=== PATIENT | male | born 1950 | race Caucasian/White ===

== ENCOUNTER → 2017-12-23 07:57 | Outpatient (CLI) | payer MEDICARE, SELFPAY ==
[2017-12-23 09:54] LABS: Hemoglobin A1C 5.8 % (0.0-7.0)
[2017-12-23 11:53] LABS: Alanine Aminotransferase 30 U/L (12-78); Albumin Level 3.9 gm/dL (3.4-5.0); Albumin/Globulin Ratio 1.3 (1.1-1.8); Alkaline Phosphatase 74 U/L (46-116); Anion Gap 14.4 mEq/L (5-15); Aspartate Amino Transferase 16 U/L (15-37); Bilirubin,Total 0.6 mg/dL (0.2-1.0); Blood Urea Nitrogen 17 mg/dL (7-18); Calcium 9.3 mg/dL (8.5-10.1); Carbon Dioxide 25 mmol/L (21.0-32.0); Chloride 105 mmol/L (98-107); Chol/HDL Ratio 5.6 (1-3.5); Cholesterol 186 mg/dL (140-200); Creatinine,Serum 1.09 mg/dL (0.70-1.30); Estimated Glomerular Filt Rate 67 ml/min (>60); GFR (African American) 81 ML/MIN (>60); Globulin 2.9 gm/dl (1.3-3.2); Glucose 116 mg/dL (74-106); HDL Cholesterol 33 mg/dL (27-67); LDL Cholesterol 110 mg/dL (0-130); Potassium 4.4 mmoL/L (3.5-5.1); Prostate Specific Ag Screen 0.5 ng/mL (0.0-4.0); Sodium 140 mmol/L (136-145); Total Protein,Serum 6.8 gm/dL (6.4-8.2); Triglycerides 213 mg/dL (30-200); VLDL Cholesterol 43 mg/dL (0-40)
== END ==
PROVIDERS: Visit Provider Family Medicine
DX: Z12.5 Encounter for screening for malignant neoplasm of prostate (principal); I10 Essential (primary) hypertension; R73.9 Hyperglycemia, unspecified
CPT/HCPCS: 36415; 80053; 80061; 83036; G0103

== ENCOUNTER → 2018-11-05 08:09 | Outpatient (CLI) | payer MEDICARE, SELFPAY ==
[2018-11-05 09:09] LABS: Hemoglobin A1C 6.2 % (0.0-7.0)
[2018-11-05 09:29] LABS: Alanine Aminotransferase 30 U/L (12-78); Albumin Level 3.9 gm/dL (3.4-5.0); Albumin/Globulin Ratio 1.3 (1.1-1.8); Alkaline Phosphatase 71 U/L (46-116); Anion Gap 12.9 mEq/L (5-15); Aspartate Amino Transferase 16 U/L (15-37); Bilirubin,Total 0.4 mg/dL (0.2-1.0); Blood Urea Nitrogen 15 mg/dL (7-18); Calcium 9.4 mg/dL (8.5-10.1); Carbon Dioxide 29 mmol/L (21.0-32.0); Chloride 105 mmol/L (98-107); Chol/HDL Ratio 4.9 (1-3.5); Cholesterol 197 mg/dL (140-200); Estimated Glomerular Filt Rate 60 ml/min (>60); GFR (African American) 72 ML/MIN (>60); Glucose 119 mg/dL (74-106); HDL Cholesterol 40 mg/dL (27-67); LDL Cholesterol 118 mg/dL (0-130); Potassium 4.9 mmoL/L (3.5-5.1); Prostate Specific Ag, Diagnost 0.68 ng/mL (0.0-4.0); Sodium 142 mmol/L (136-145); Total Protein,Serum 6.9 gm/dL (6.4-8.2); Triglycerides 194 mg/dL (30-200); VLDL Cholesterol 39 mg/dL (0-40)
== END ==
PROVIDERS: Visit Provider Family Medicine
DX: Z00.00 Encounter for general adult medical examination without abnormal findings (principal); Z79.899 Other long term (current) drug therapy
CPT/HCPCS: 36415; 80053; 80061; 83036; 84153

== ENCOUNTER → 2019-07-13 16:42 | Outpatient (CLI) | payer MEDICARE, SELFPAY ==
--- NOTE | 2019-07-13 | XR_ITS ---
PROCEDURE: XR LUMBAR SPINE MIN 4V CLINICAL INDICATION: LOW BACK PAIN Low back pain on both sides COMPARISON: No exams were available for comparison FINDINGS: There is normal alignment. No acute fracture or dislocation is evident. There is mild degenerative disc disease in the lower thoracic spine and at L1-L2 as well as L4-5 and L5-S1. Facet arthritic changes are present at L4-5 and L5-S1. There is mild sclerosis of the right SI joint. No lytic or blastic change. IMPRESSION: Degenerative changes as described above including degenerative disc disease and facet arthritic change Dictated by: Chandan Mendez MD 07/13/2019 19:34 Electronically signed by Chandan Mendez MD in [place] 07/13/2019 19:34
== END ==
PROVIDERS: PCP Family Medicine; Visit Provider Family Medicine
DX: M54.5 Low back pain (principal)
CPT/HCPCS: 72110

== ENCOUNTER 2019-08-10 09:00 | Outpatient (RCR) | payer MEDICARE, SELFPAY | END 2019-08-10 09:05 | disposition home or self-care (01) | LOC: PT 09:00 | PROVIDERS: PCP Family Medicine; Visit Provider Family Medicine | DX: M54.5 Low back pain (principal) | CPT/HCPCS: 97010; 97014; 97110; 97163; G0283 ==

== ENCOUNTER → 2021-02-15 07:56 | Outpatient (CLI) | payer MEDICARE, SELFPAY ==
[2021-02-15 09:59] LABS: Alanine Aminotransferase 31 U/L (12-78); Albumin Level 3.9 g/dl (3.5-5.0); Albumin/Globulin Ratio 1.6 (1.1-1.8); Alkaline Phosphatase 72 U/L (38-126); Anion Gap 11.9 mEq/L (5-15); Aspartate Amino Transferase 39 U/L (17-59); Bilirubin,Total 0.5 mg/dl (0.2-1.3); Blood Urea Nitrogen 14 mg/dl (9-20); Carbon Dioxide 30 mmol/L (22.0-30.0); Chloride 105 mmol/L (98-107); Chol/HDL Ratio 6.1 (1-3.5); Cholesterol 212 mg/dl (140-200); Estimated Glomerular Filt Rate 66 ml/min (>60); GFR (African American) 80 ML/MIN (>60); Globulin 2.4 g/dL (1.3-3.2); Glucose 122 mg/dl (74-100); HDL Cholesterol 35 mg/dl (40-60); Potassium 4.9 mmoL/L (3.5-5.1); Sodium 142 mmol/L (136-145); Total Protein,Serum 6.3 g/dl (6.3-8.2); Triglycerides 273 mg/dl (30-150); VLDL Cholesterol 55 mg/dL (0-40)
[2021-02-15 10:10] LABS: Direct LDL Cholesterol 111.57 mg/dL (100-129)
[2021-02-15 10:26] LABS: Prostate Specific Ag Screen 0.9 ng/ml (0.0-4.0)
== END ==
PROVIDERS: Visit Provider Family Medicine
DX: I10 Essential (primary) hypertension (principal); Z12.5 Encounter for screening for malignant neoplasm of prostate
CPT/HCPCS: 36415; 80053; 80061; G0103

== ENCOUNTER → 2021-04-26 15:09 | Outpatient (CLI) | payer MEDICARE, SELFPAY ==
--- NOTE | 2021-04-26 15:15 | XR_ITS ---
PROCEDURE: XR CERVICAL SPINE 5V CLINICAL INDICATION: Radiculopathy, cervical region COMPARISON: No exams were available for comparison FINDINGS: There is straightening of the cervical lordosis which may be due to patient position or muscle spasm. There is normal alignment. Degenerative disc disease is present at C4-C5 C5-C6 and C6-C7 worse at C5-C6. Small anterior osteophytes are present at C4-C5 and C6 with small posterior osteophytes at C5-C6. Minimal foraminal narrowing noted on the right at C5-C6 and C6-C7 with moderate foraminal narrowing on the left at C5-C6 and C6-C7. No cervical ribs. IMPRESSION: Cervical spondylosis as detailed above. Dictated by: Chandan Mendez MD 04/26/2021 15:54 Chandan Mendez MD in [facility] 04/26/2021 15:54
--- NOTE | 2021-04-26 15:15 | XR_ITS ---
PROCEDURE: XR SHOULDER RT MIN 2V CLINICAL INDICATION: Pain in right shoulder COMPARISON: No exams were available for comparison FINDINGS: No fracture or dislocation. No lytic or blastic change. There is normal mineralization. There are mild osteoarthritic changes at the acromioclavicular joint and glenohumeral joint with mild subacromial stenosis. Other findings:None. IMPRESSION: Mild osteoarthritic changes with subacromial stenosis Dictated by: Chandan Mendez MD 04/26/2021 15:55 Chandan Mendez MD in [place] 04/26/2021 15:55
== END ==
PROVIDERS: PCP Family Medicine; Visit Provider Family Medicine
DX: M54.12 Radiculopathy, cervical region (principal); M25.511 Pain in right shoulder
CPT/HCPCS: 72050; 73030

== ENCOUNTER 2021-06-14 10:00 | Outpatient (RCR) | payer MEDICARE, SELFPAY ==
--- NOTE | 2021-05-14 15:23 | HMH.PTOPEV ---
PT Outpatient Evaluation Rehab PT Outpatient Evaluation Start: 05/14/21 14:00 Freq: Status: Active Protocol: Document 05/14/21 14:01 SOCOJOANN (Rec: 05/14/21 15:23 JAZZMINEDALTON [id number]) Electronically Signed By Adam Armstrong PT 05/14/21 14:01 Outpatient Therapy Subjective History Subjective History This is the initial evaluation for Jesus Trent. Pt is a 70 y/o male referred for R cervical radiculopathy. Pt reports that he has been experiencing intermittent shooting, numbness and tingling down his R arm that lasts for a couple minutes. Pt reports the tingling occurs in his R thumb, index, and middle finger. Pt reports he feels the numbness more when he sits on a hard surface. Pt reportsed he has never has this before. - note done by Tessa Hobbs, SPT Chief Complaint Paresthesia Symptom Type Numbness,Tingling,Shooting Symptoms Relieved By Shaking Symptoms Aggravated By Sitting,Twisting,Lifting Prior Functional Limitations None Current Functional Limitations Housework,Dressing,Recreation Activity Symptom Description Intermittent Cervical Eval Palpation Cervical Muscles R Cervical Paraspinal,L Cervical Paraspinal,R SCM,R Upper Trapezius,L Upper Trapezius Cervical/Thoracic Palpation Findings Tenderness,Trigger Point Posture Head/C-Spine Posture Sitting Position Flexed,C-Spine Flattened Head/C-Spine Posture Standing Position Flexed,C-Spine Flattened Flexibility Deficits Upper Trapezius Muscle Length (R) Moderate Tightness,(L) Moderate Tightness Scalene Group Muscle Length (R) Moderate Tightness,(L) Moderate Tightness Sternocleidomastoid Muscle Length (R) Moderate Tightness AROM Cervical Spine Extension Active Range of 30 Motion (degrees) Cervical Spine Flexion Active Range of 35 Motion (degrees) Cervical Spine Right Lateral Flexion 50 Active Range of Motion (degrees) Cervical Spine Left Lateral Flexion 35 Active Range of Motion (degrees) Cervical Spine Right Rotation Active mod impaired by Range of Motion (degrees) Cervical Spine Left Rotation Active min impaired by Range of Motion (degrees) MMT Bilateral Deltoid (C5)
== END 2021-06-14 10:05 | disposition home or self-care (01) ==
LOC: PT 10:00
PROVIDERS: PCP Family Medicine; Visit Provider Family Medicine
DX: M54.12 Radiculopathy, cervical region (principal)
CPT/HCPCS: 97014; 97035; 97110; 97140; 97163; G0283

== ENCOUNTER → 2021-07-23 08:58 | Outpatient (CLI) | payer MEDICARE, SELFPAY | PROVIDERS: PCP Family Medicine; Visit Provider Nurse Practitioner | DX: Z20.822 Contact with and (suspected) exposure to COVID-19 (principal) | CPT/HCPCS: C9803; U0003; U0005 ==

== ENCOUNTER → 2022-01-11 08:40 | Outpatient (CLI) | payer MEDICARE, SELFPAY ==
[2022-01-11 09:54] LABS: Alanine Aminotransferase 33 U/L (12-78); Albumin Level 3.9 g/dl (3.5-5.0); Albumin/Globulin Ratio 1.7 (1.1-1.8); Alkaline Phosphatase 68 U/L (38-126); Anion Gap 7.6 mEq/L (5-15); Aspartate Amino Transferase 43 U/L (17-59); Bilirubin,Total 0.5 mg/dl (0.2-1.3); Blood Urea Nitrogen 16 mg/dl (9-20); Calcium 9.3 mg/dl (8.4-10.2); Carbon Dioxide 30 mmol/L (22.0-30.0); Chloride 105 mmol/L (98-107); Cholesterol 199 mg/dl (140-200); Estimated Glomerular Filt Rate 66 ml/min (>60); GFR (African American) 79 ML/MIN (>60); Globulin 2.3 g/dL (1.3-3.2); Glucose 132 mg/dl (74-100); HDL Cholesterol 33 mg/dl (40-60); Potassium 4.6 mmoL/L (3.5-5.1); Sodium 138 mmol/L (136-145); Total Protein,Serum 6.2 g/dl (6.3-8.2); Triglycerides 230 mg/dl (30-150); VLDL Cholesterol 46 mg/dL (0-40)
[2022-01-11 10:05] LABS: Direct LDL Cholesterol 109.92 mg/dL (100-129)
[2022-01-11 10:23] LABS: Prostate Specific Ag Screen 0.8 ng/ml (0.0-4.0)
== END ==
PROVIDERS: PCP Family Medicine; Visit Provider Family Medicine
DX: Z00.00 Encounter for general adult medical examination without abnormal findings (principal); I10 Essential (primary) hypertension; Z12.5 Encounter for screening for malignant neoplasm of prostate
CPT/HCPCS: 36415; 80053; 80061; G0103

== ENCOUNTER → 2022-03-25 08:30 | Outpatient (CLI) | payer MEDICARE, SELFPAY ==
--- NOTE | 2022-03-25 08:36 | CA_ITS ---
APPROVED REPORT EXAM: Comprehensive 2D, Doppler, and color-flow Echocardiogram Bell Spinner: Sara Hough CRT Ht: 6 ft 3 in Wt: 270lbs BSA: 2.49 BP: 128/78 mmHg Indications: SOB, HTN, TDE poor windows, difficult exam 2D Dimensions LVOT 2.09 cm (M/F) 1.5-2.5 LA Volume 31.70 mL LA Volume Index 12.70 mL/m2 (M/F) 16-34 M-Mode Dimensions RVDd 2.67 cm (0.9-2.6) LA Diam 3.54 cm (1.9-4.0) LVDd 4.31 cm (3.5-5.7) Ao Diam 4.17 cm (2.0-3.7) LVDs 3.25 cm (3.5-5.7) IVSd 1.55 cm (0.6-1.1) PWd 1.06 cm (0.6-1.1) EF (Teich) 49.10% FS 24.60% EDV (Teich) 83.50 mL TAPSE 2.06 (<1.7) ESV (Teich) 42.50 mL LV Diastology E Decel Time 190.00 (160-240 msec) E/A Ratio 0.61 MED E' 7.80 (< 7 cm/sec) MED A' 10.50 cm/s E'/MED E' Ratio 5.09 (>14) LAT E' 5.50 (<10 cm/sec) LAT A' 8.00 cm/s E/LAT E' Ratio 7.22 (>14) Aortic Valve AI PHT 403.00 ms AO Peak GR. 5.10 mmHg Mitral Valve MV E Max Steve. 40.00 (40-130 cm/s) MV A Velocity 66.00 (40-130 cm/s) E/A Ratio 0.61 MV Decel. Time 190.00 (160-240 ms) MV PHT 56.00 ms Pulmonary Valve PV Peak Velocity 156.00 (50-150 cm/s) Tricuspid Valve TR P. Velocity 281.00 cm/s RAP Estimate 10.00 mmHg RVSP 41.50 mmHg Left Ventricle Technically difficult study because of the patient factors and poor acoustic windows. Left atrium is mildly enlarged, left ventricle is normal size, mild concentric left ventricular hypertrophy, estimated ejection fraction 55% with no regional wall motion abnormality, grade 1 diastolic dysfunction seen without tissue Doppler evidence of raise left atrial pressure. Right Ventricle Right atrium and right ventricle are normal size and contractility. Aortic Valve Aortic valve is minimally thickened and fibrosed there is no aortic stenosis, there is trace aortic insufficiency. Mitral Valve Mitral valve grossly normal, there is trace mitral regurgitation. Tricuspid Valve Tricuspid valve grossly normal, there is trace tricuspid regurgitation, tricuspid regurgitation jet velocity is inadequate for calculation of the right ventricular systolic pressure. Pulmonic Valve Pulmonic valve is poorly visualized. Great Vessels Aortic root is normal size. Inferior vena cava is poorly visualized. Pericardium No significant pericardial effusion noted. Conclusion 1. Mildly enlarged left atrium, normal left ventricular size, mild concentric left ventricular hypertrophy, estimated ejection fraction 55% with no regional wall motion abnormality, grade 1 diastolic dysfunction seen without tissue Doppler evidence of raise left atrial pressure. 2. Trace aortic, mitral and tricuspid regurgitation. 3. No significant pericardial effusion noted. 4. Inferior vena cava is poorly visualized. Electronically signed by : Ishmael Curtis MD 03/25/2022 18:44:10
== END ==
PROVIDERS: PCP Family Medicine; Visit Provider Family Medicine
DX: R06.09 Other forms of dyspnea (principal); I10 Essential (primary) hypertension
CPT/HCPCS: 93306

== ENCOUNTER 2022-05-02 10:00 | Outpatient (RCR) | payer MEDICARE, SELFPAY | END 2022-05-02 10:05 | disposition home or self-care (01) | LOC: OT 10:00 | PROVIDERS: PCP Family Medicine; Visit Provider Orthopaedic Surgery | DX: M75.121 Complete rotator cuff tear or rupture of right shoulder, not specified as traumatic (principal) | CPT/HCPCS: 97010; 97014; 97035; 97110; 97140; 97165; 97530; G0283 ==

== ENCOUNTER → 2023-04-01 11:56 | Outpatient (CLI) | payer MEDICARE, SELFPAY ==
--- NOTE | 2023-04-01 12:00 | XR_ITS ---
FINAL REPORT CLINICAL HISTORY: RT FOOT PAIN, TWISTED ANKLE February, POSTERIOR ANKLE/HEEL PAIN FINDINGS: Right foot Three views were obtained. There is no acute fracture or dislocation. The joint spaces appear normal. No soft tissue abnormality is identified. There is a moderate plantar spur. Moderate Brandon deformity is identified. There is moderate joint space narrowing of the 1st metatarsophalangeal joint consistent with osteoarthritis. IMPRESSION: Osteoarthritis. Reviewed, Interpreted and Dictated by Trev Lam MD Transcribed by Hafsa Hanna Authenticated and [facility]
--- NOTE | 2023-04-01 12:00 | XR_ITS ---
FINAL REPORT CLINICAL HISTORY: RT ANKLE PAIN,RT FOOT PAIN, TWISTED ANKLE February, POSTERIOR ANKLE/HEEL PAIN FINDINGS: Right ankle Three views were obtained. There is no acute fracture or dislocation. The joint spaces appear normal. No soft tissue abnormality is identified. There is a moderate plantar spur. Moderate Brandon deformity is identified. Mortise is intact. IMPRESSION: No acute process. Reviewed, Interpreted and Dictated by Trev Lam MD Transcribed by Hafsa Hanna Authenticated and [facility]
== END ==
PROVIDERS: PCP Internal Medicine; Visit Provider Internal Medicine
DX: M79.671 Pain in right foot (principal); M25.571 Pain in right ankle and joints of right foot
CPT/HCPCS: 73610; 73630

== ENCOUNTER 2025-01-21 08:03 | Outpatient (CLI) | payer MEDICARE, SELFPAY ==
--- OUTSIDE RECORDS SUMMARY | 2025-01-21 08:06 | XMS_ITS | Data Portability ---
Author Organization [facility] Address [address] [facility] [address] [place] [address] Care Team Providers Care Putty Glazer Name Role Phone MARYCHUY DONATO Referring Provider MARYCHUY DONATO Primary Care Provider [phone] ALFRED YAÑEZ Orthopedic Surgeon [phone] Assessment Encounter Date Assessment Date Assessment LastModified by Organization Details LastModified Time 08/07/2022 08/07/2022 Mr. Trent is a 72 y/o male with a chronic (~1 year to 6 months) of worsening RUE pain that is radiating in an approximate C7 distribution. He has associated paresthesias/num bness in the same distribution, particularly involving the right hand. His MRI cervical spine reveals multi-level spondylosis and foraminal narrowing. Interestingly, his pathology appears more significant on the left side than the right at all levels, but he has no left-sided symptoms. There is some mild to moderate cord compression but he has no clinical signs or symptoms consistent with myelopathy. There is evidence of right-sided C6/7 foraminal narrowing which could be the source of his symptoms. I would like for him to trial a right-sided C6/7 TFESI with pain management to see if this improves his symptoms. If he has a positive response that is transient in nature, he could be a candidate for a right-sided C6/7 foraminotomy. If he does not respond to the injection, he may require a RUE EMG/NCS for additional evaluation. We will see him in follow-up in ~2 months to assess his response to the injection. [email or web address] Not available 08/07/2022 18:58:04 10/25/2022 10/25/2022 Mr. 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 He has had some improvement in his symptoms with Lyrica 50 mg at bedtime. Therefore we will have him slowly increase his Lyrica dosage to 75 mg twice daily. If this is helpful but he continues to have some symptoms he may increase to 3 times daily. We are going to schedule him for a right upper extremity EMG to better isolate the source of his right upper extremity symptoms. He has a trip coming up in a few weeks and we will provide him with a Medrol Dosepak to take for any pain flareups. He would potentially be a candidate for CT 5 6 and C6-7 surgery. He will follow-up after the EMG is complete. Seen by Dr. Encarnacion and myself. Not available 10/25/2022 15:15:41 12/04/2022 12/04/2022 Mr. Trent is a 72 y/o male who previously was experiencing RUE radiating pain in a C7 distribution with a MRI C-spine demonstrating pronounced degenerative changes at C5/6 and C6/7, with L>R foraminal stenosis at both levels and some cord deformation at C5/6. He has EMG confirmation of right C6/7 radiculopathy. He has some RUE triceps weakness, but he is not bothered by this and does not notice it in a functional capacity. He wishes to avoid surgery if at all possible, and his pain has resolved with Lyrica 75 mg BID. At this time we will continue to monitor his symptoms. We will set follow-up for 3 months from now to make sure he does not have a recurrence of symptoms or more occult findings concerning for development of myelopathy. [email or web address] Not available 12/04/2022 21:32:12 03/04/2023 03/04/2023 Mr. Trent is a 72-year-old male with C5-6 and C6-7 degenerative changes with improvement of his right radicular arm symptoms with Lyrica. I will send in a refill of the Lyrica for him. He is going to discuss future refills with his primary care. We discussed however that we be happy to continue to fill this if he prefers. He has been to follow-up in about 6 months to see how he is progressing. He understands to call before then if he has any symptoms or concerns. We did discuss that if he should develop worsening dexterity in his hands or balance issues to let our office know. The patient and his understand and agree with this plan. Not available 03/04/2023 11:21:26 08/27/2023 08/27/2023 ASSESSMENT: Mr. Trent is a pleasant 73-year-old man who returns to the office after last being seen 03/04/2023 in follow-up of his right upper extremity symptoms. He is accompanied today by his . He reports that his balance has not gotten worse though he does still report issues when he is in the shower that he has to hold onto a grab bar or whenever he closes his eyes. When his eyes are open he denies any issues with his balance. His does not feel that his balance is worsening. He denies any dexterity issues. He has been taking Lyrica 75 mg twice a day. He does report that he has previously been told to take it 3 times a day if his pain was not well-controlled at twice a day; he reports taking it a third time maybe 3 or 4 times when his pain was worse. He localizes his pain when it is present into his right shoulder and the first 2 fingers on his right hand. He is tolerating the Lyrica with no side effects and does find it very helpful to manage the symptoms in his right upper extremity. He is still hopeful to avoid surgery. He does not appreciate any weakness into his right upper extremity. He is right-hand dominant. IMAGING: No updated imaging available for review Dr. Encarnacion was consulted on this case for plan of care development PLAN: Continue with Lyrica 75 mg twice a day Lyrica 75 mg take 1 tablet twice a day #180 with 1 refill Oniel was reviewed and is appropriate Follow-up with our office as needed moving forward I spoke with Mr. Trent that we will provide a refill of his Lyrica today with one refill to get him to his annual exam with his PCP this summer. His Oniel was reviewed and is appropriate. He is going to contact his PCPs office to discuss if he would agree to taking over management of this medication. If his PCP does not want to manage this we will refer him to see Dr. Gregory at pain management. He is instructed to notify our office if he developed any symptoms concerning for myelopathy with changes in his balance or dexterity. He is also encouraged to follow-up with us if his right upper extremity symptoms were to worsen. He and his verbalized understanding of these instructions and are agreeable to this plan. They have no further questions or concerns at this time. They are satisfied with this plan of care. [email or web address] Not available 08/27/2023 13:15:26 Plan of Treatment Reminders Order Date Submit Date Provider Last Modified By Organization Details Last Modified Time Details Appointments None recorded. Lab None recorded. Referral None recorded. Procedures None recorded. Surgeries None recorded. Imaging None recorded. Medication Orders Lyrica 75 mg capsule 024 024 [email or web address] [facility], [address], [address], 4 08:55:32 Lyrica 75 mg capsule 023 023 [facility], [address], [address], 3 11:22:21 Lyrica 75 mg capsule 023 023 [facility], [address], [address], 3 11:46:11 Patient TargetsNo targets recorded. Patient InstructionsNo instructions recorded. Reason for Referral None Reported. Results Created Date Observation Date Name Description Value Unit Range Abnormal Flag Note LastModifiedBy Organization Detail LastModifiedTime 07/11/20 22 07/11/2022 XR, cervi cirilo spine , 2 or 3 view [place] [facility] [address] [address] Roel matos Name: JESUS Lane MANUEL matos : 1949 Roel matos 0 Orderi ng Provid er: SAIMA LOPEZ EXAM DATE: 2021 EXAM: XR CERVIC AL AP/LAT CLINIC AL INFORM ATION: Neck pain IMAGES PROVID ED: AP, latera l, open mouth and submen heavenly views of the cervic al spine. COMPAR MIKE: None. FINDIN GS: Curvat ure, alignm ent, verteb ral body height s are normal . Multil evel disc space reduct ion is seen with anteri or and latera l osteop hytes. No radiog raphic eviden ce of injury is seen. IMPRES YVONNE: Degene rative change s of the cervic al spine. Interp reted By: Annie Vega MD Electr onical ly Signed By: Annie Vega MD on 022 2:32 PM [email or web address] [facility] [place] [address] , [place], [address], 07/11/2022 16:55:14 07/24/20 22 04/26/2021 XR, cervi cirilo spine , 4 or 5 view No observ ation record ed. BARCODE Not Available 2021 11:33:16 07/24/20 22 04/26/2021 XR, shoul binta, 2 or more view No observ ation record ed. BARCODE Not Available 2021 11:33:17 08/01/20 22 08/01/2022 MRI, cervi cirilo spine , w/o contr ast [facility] [address] [place] [address], [place] [address] Roel t Name: JESUS Quintanilla Roel t : 1949 Roel t 0 Orderi ng Provid er: SUHAIL GRAVES EXAM DATE: 2021 EXAM: MR CERVIC AL W/O CONTRA ST HISTOR Y: 72-yea r-old male with neck pain and right arm numbne ss. COMPAR MIKE: 022 FINDIN GS: There is mild diffus e kyphos is of the cervic al spine. There is no sublux ation. There is no fractu re or pathol ogic intrao sseous lesion . There is mild to modera te anteri or margin al osteop hytic spurri ng. No parasp inous soft tissue abnorm ality is identi fied. 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 The cranio cervic al juncti on is normal in appear ance. There are mild degene rative change s at C1-C2. C2-C3: There is modera te left facet arthro valeria and a minima l disc bulge. There is no centra l canal stenos is. There is mild left neural forami nal stenos is. C3-C4: There is a broad- based disc bulge/ protru yvonne and left greate r than right uncove rtebra l spurri ng. There is mild facet arthro valeria. There is no centra l canal stenos is. There is severe left neural forami nal narrow ing. C4-C5: There is a mild disc bulge and mild endpla te spurri ng. There is mild left facet arthro valeria. There is no centra l canal stenos is. There is no neural forami nal narrow ing. C5-C6: There is a broad- based disc protru yvonne and left greate r than right uncove rtebra l spurri ng. There is stenos is of the left latera l recess and mild centra l canal stenos is. There is severe left and mild right neural forami nal stenos is. C6-C7: There is a broad- based disc protru yvonne extend ing into the right neural forame n and mild endpla te spurri ng. There is mild centra l canal stenos is. There is severe bilate ral neural forami nal stenos is. C7-T1: There is mild endpla te spurri ng. There is no centra l canal or neural forami nal narrow ing. The visual ized thorac ic spine are essent ially normal in appear ance. IMPRES YVONNE: 1. There are diffus e degene rative change s in the cervic al spine with mild centra l canal stenos is at C5-C6 and C6-C7, severe bilate ral neural forami nal stenos is at C6-C7, and severe left neural forami nal narrow ing at C3-C4 and C5-C6. Interp reted By: Raul lawson MD Electr onical ly Signed By: Raul lawson MD on 2021 10:58 AM [email or web address] [facility] [address] [place] [address], [id number], 09/03/2022 14:07:08 11/06/19 23 11/05/2022 nerve condu ction study /EMG (PROC ) No observ ation record ed. [email or web address] Not Available 11/06 11:26:45 Result Notes None recorded. Problems Name Problem SNOMED Code Status Onset Date Resolution Date Notes Provider Name and Address Organization Details Recorded Time Impingem ent syndrome of right shoulder region 51999441658 9102 Active 2021 TARUN KUMAR II, PT, DPT [address] [place] [address], [address] [place] [address] , [facility] 2 13:21:51 Muscular incoordi nation 33056555 Active 2021 TARUN KUMAR II, PT, DPT [address] [place] [address], [address] [place] [address] , [facility] 2 13:21:52 Muscle weakness 90575272 Active 2021 TARUN KUMAR II, PT, DPT [address] [place] [address], [address] [place] [address] , [facility] 2 13:21:52 Cervical spondylo sis 127755444 Active 2021 TARUN KUMAR II PT, DPT [address] [place] [address], [address] [place] [address] , [facility] 2 13:21:54 Cervical radiculo valeria 62771072 Active 2021 MILLA VILLEGAS PA-C [address] [place] [address], [address] [place] [address] , [facility] 2 14:05:52 Abnormal results of cardiova scular function studies 492546149 Completed 201411/01/2016 From Automate d Load;Pro vider: Tarun Vazquez;Sta tus: Active TARUN VAZQUEZ MD [address] [place], [address] , [facility] 7 08:54:20 Hyperten sive disorder 73510233 Active 2014 From Automate d Load;Pro vider: Tarun Vazquez;Sta tus: Active Not Available [facility] 6 03:15:09 Hyperlip idemia 56826889 Active 2014 From Automate d Load;Pro vider: Tarun Vazquez;Sta tus: Active Not Available [facility] 6 03:15:09 Problem Notes None recorded. Procedures Surgical History Date Name Laterality Status Provider Name and Address Organization Details Recorded Time 07/17/20 PT Manual Therapy completed TARUN KUMAR II, PT, DPT [address] [place], [address], [facility] 08/05/2022 11:50:34 07/17/20 PT Therapeutic Exercise completed TARUN KUMAR II, PT, DPT [address] [place], [address], [facility] 08/05/2022 11:50:00 07/02/20 PT Manual Therapy completed TARUN KUMAR II, PT, DPT [address] [place], [address], [facility] 08/01/2022 22:50:17 07/02/20 PT Therapeutic Exercise completed TARUN KUMAR II, PT, DPT [address] [place], [address], [facility] 08/01/2022 22:49:55 06/25/20 PT Manual Therapy completed TARUN KUMAR II, PT, DPT [address] [place], [address], [facility] 06/25/2022 10:51:59 06/25/20 PT Therapeutic Exercise completed TARUN KUMAR II, PT, DPT [address] [place], [address], [facility] 06/25/2022 10:50:39 11/07/20 22 PT Manual Therapy completed TARUN HICKST II, PT, DPT [address] [place], [address], [facility] 06/17/2022 13:20:19 06/17/20 22 PT Therapeutic Exercise completed TARUN HICKST II, PT, DPT [address] [place], [address], [facility] 06/17/2022 13:20:03 06/05/20 22 PT Manual Therapy completed TARUN HICKST II, PT, DPT [address] [place], [address], [facility] 06/30/2022 19:03:16 06/05/20 22 PT Therapeutic Exercise completed TARUN HICKST II, PT, DPT [address] [place], [address], [facility] 06/30/2022 19:02:52 05/27/20 22 PT Evaluation - Low Complexity completed TARUN HICKST II, PT, DPT [address] [place], [address], [facility] 06/17/2022 13:27:24 05/27/20 22 PT Therapeutic Exercise completed TARUN HICKST II, PT, DPT [address] [place], [address], [facility] 06/17/2022 13:27:42 04/02/20 22 Injection Joint/Bursa, Major completed ALFRED YAÑEZ MD [address] [place], [address], [facility] 04/02/2022 12:33:58 Cholecystectomy completed Tessa Alexander [facility] 04/02/2022 11:08:30 Other completed Mariama Norman [facility] 11/01/2016 08:06:[address] [facility] 11/01/2016 08:06:19 Imaging Results None recorded. Procedure Notes None recorded. Medical Equipment None Reported. Allergies Allergen ID Allergen Name Allergen Category Reaction Reaction Severity Criticality Documentation Date Start Date Code Code System Note Provider Name and Address Organization Details Recorded Time 834397 Keflex medicatio n rash Not available Not available 07/04/20162014 7 RxNorm React ion: RASH; Comme nt: Creat ed By: Michael conrad Date: 07/28 3:54: 21 PM; Not Available Pending sale to [facility] 6 14:14:04 939209 cyclobenz aprine medicatio n Not available Not available Not available 05/27/2022 88287 RxNorm Tessa Alexander [facility] 16:45:40 Medications Name Sig Start Date Stop Date Status Note LastModified by Organization Details LastModified Time cyclobenz aprine 10 mg tablet Take 1 tablet 3 times a day by oral route as needed for 10 days. 2021 active Not Available Not Available Not Avai lable Multiple Vitamin capsule Daily 04/02 completed Duration : 30 days;Brenden quency: daily;Me dication Descript ion: multivit jo; Dosage:1 ; Route:or al; refills: 3; Quantity :100 capsule Not Available Not Available Not Available lisinopri l 20 mg-hydroc hlorothia zide 12.5 mg tablet TAKE ONE TABLET BY MOUTH ONCE DAILY 2016 active HAS TO MAKE APPT FOR REFILLS! !!! LAST SEEN 07/2015 Not Available Not Available Not Available Medrol (Stephen) 4 mg tablets in a dose pack Take 1 tablet by oral route as directed . 2021 active Not Available Not Available Not Avai lable Zyrtec 10 mg tablet Take 1 tablet every day by oral route. active Not Available Not Available No t Available methocarb caitlin 750 mg tablet Take 1 tablet 3 times a day by oral route as needed for 10 days. 2021 active Not Available Not Available Not Avai lable diclofena c sodium 75 mg tablet,de layed release Take 1 tablet by mouth twice daily 2021 active Not Available Not Available Not Avai lable montel[facility] st 10 mg tablet Take 1 tablet every day by oral route. active Not Available Not Available No t Available aspirin 81 mg tablet Daily 04/02 completed Duration : 30 days;Brenden quency: daily;Me dication Descript ion: aspirin; Dosage:1 ; Route:or al; refills: 0; Quantity :30 tablet Not Available Not Available Not Available Fiber-Tab s 625 mg tablet As Directed active Frequenc y: as direct.; Alt Frequenc y: daily;Me dication Descript ion: polycarb ophil; Route:or al; refills: 0 Not Available Not Available Not Available oxycodone 5 mg tablet Take 1 tablet every day by oral route. 2021 active Not Available Not Available Not Avai lable Lyrica 75 mg capsule Take 1 capsule twice a day by oral route. 2023 active Not Available Not Available Not Avai lable Vitamin C Daily active Frequenc y: daily;Al t Frequenc y: as direct.; Medicati on Descript ion: ascorbic acid; refills: 0 Not Available Not Available Not Available vitamin E Daily active Frequenc y: daily;Al t Frequenc y: as direct.; Medicati on Descript ion: vitamin E; refills: 0; Quantity :1 Not Available Not Available Not Available Singulair as dir. 04/02 completed Not Available Not Available Not Available Vitamin D3 active Not Available Not Available Not Available Glucosami ne-Chondr otin As Directed 04/02 completed Frequenc y: as direct.; Alt Frequenc y: daily;Me dication Descript ion: miscella neous; refills: 0 Not Available Not Available Not Available Vitals Date Recorded Body height Body mass index (BMI) Body weight Systolic blood pressure Diastolic blood pressure Provider Name and Address Organization Details Last Updated DateTime 08/27/2023 190.5 cm 34.1 kg/m2 917190. 72 g 110 mm[Hg] 84 mm[Hg] [facility] 4 11:05:27 Date Recorded Body height Body mass index (BMI) Body weight Systolic blood pressure Diastolic blood pressure Provider Name and Address Organization Details Last Updated DateTime 10/25/2022 190.5 cm 34 kg/m2 239375.1 2 g 132 mm[Hg] 82 mm[Hg] Clarita Beasley [facility] 3 10:34:58 Date Recorded Body height Body mass index (BMI) Body weight Systolic blood pressure Diastolic blood pressure Provider Name and Address Organization Details Last Updated DateTime 12/04/2022 190.5 cm 34 kg/m2 395594.1 2 g 130 mm[Hg] 82 mm[Hg] Clarita Beasley [facility] 3 13:30:05 Date Recorded Body height Body mass index (BMI) Body weight Systolic blood pressure Diastolic blood pressure Provider Name and Address Organization Details Last Updated DateTime 03/04/2023 190.5 cm 34.1 kg/m2 903010. 72 g 102 mm[Hg] 70 mm[Hg] [facility] 3 10:40:26 Date Recorded Body height Body mass index (BMI) Body weight Systolic blood pressure Diastolic blood pressure Provider Name and Address Organization Details Last Updated DateTime 08/07/2022 190.5 cm 34 kg/m2 984013.1 2 g 140 mm[Hg] 82 mm[Hg] [facility]ash [facility] 2 08:36:49 Social History Question Answer Notes LastModified by [employer] ion Details LastModified Time Tobacco Smoking Status Never Smoker Mariama Norman [facility] 11/01/2016 08:05:21 Which Of Your Hands Is Dominant? Right Information not available 04/02/2022 Marital Status Informatio n not available 11/01/2016 What Was The Date Of Your Most Recent Tobacco Screening? 04/02/2022 Information not available 04/02/2022 How Many Children Do You Have? 1 Information not available 11/01/2016 What Is Your Relationship Status? Information not available 04/02/2022 Has Tobacco Cessation Counseling Been Provided? No Information not available 04/02/2022 Sex: Male Functional Status Question Answer Note LastModified by Organizat ion Details LastModified Time Do you use any illicit or recreational drugs? No Information not available 04/02/2022 Do you or have you ever used any other forms of tobacco or nicotine? No Information not available 04/02/2022 What is your level of alcohol consumption? None Information not available 04/02/2022 Are you currently employed? No Information not available 04/02/2022 What is your occupation? Occupation retired - [employer] Information not available 11/01/2016 Mental Status None recorded. Family History Relationship Description Onset Age of this Age Resolved Age Notes LastModified by Organization Details LastModified Time Father Myocardial infarction Not available 11/01 08:03:53 Mother Family history of malignant neoplasm 82 Colon cancer Not available 11/01/2016 08:04:17 Maternal Grandmother Family history of malignant neoplasm Colon cancer Not available 11/01/2016 08:04:39 Unspecified Relation Heart disease Family histor y of heart diseas e uncle x 2, 1 s/p CABG with redo Not available 11/01/2016 08:05:00 Medical History Condition Response Allergies/Hayfever Y Anxiety/Depression N Other N Gout N Thyroid Disease N Kidney Stones N Heart Conditions N Hernia N Migraines N COPD N Glaucoma N Pneumonia N Skin Problems N Immune System Disorder N Anesthesia Complications N Heart Attack (NC) N Mental Illness N Neurological Problems N Diabetes N Rheumatic Fever N Bleeding Disorder N Arthritis N Seizures/Epilepsy N Blood Clot N Tuberculosis N Genetic Disorder N AIDS/HIV N Cancer N Stroke N Asthma N Blood Thinners N Alcohol Overuse/Alcohol Abuse N Sleep Apnea Y High Cholesterol Y Liver Disease N Included as Review of Systems N Hypertension Y Osteoporosis N Kidney Disease N Past Encounters Encounter ID Performer Location Encounter Start Date Encounter Closed Date Diagnosis/Indication Diagnosis SNOMED-CT Code Diagnosis ICD10 Code Diagnosis Note [id number] TARUN VAZQUEZ MD CARDIOLOG Y [facility] CLOSED [address] [place] [address] 11/01/2016 08:26:28 11/01/2016 09:48:32 Hypertensive disorder [id number] I10 Management of this problem was reviewed with the patient. No changes recommende d, status for this problem is stable at this time.I told the patient that he did not need to make a trip to see me to refill his blood pressure medication s and this could be performed by Dr. Donato. Hyperlipidemia 37314825 E78.5 Management of this problem was reviewed with the patient. No changes recommende d, status for this problem is stable at this time. [id number] ALFRED YAÑEZ MD [facility] [address] [place] [address] 04/02/2022 10:30:13 04/02/2022 11:30:07 Inflammation of rotator cuff tendon [id number] M67.813 Assessment : Right shoulder rotator cuff inflammati on, likely some level of tearing. Plan: At this time, recommend a steroid injection to calm down his subacromia l symptoms. Recommend scapular stabilizat ion and vazquez protocol physical therapy. I think he could learn improved compensati on to improve his function, strength, pain symptoms with therapy. If his symptoms persist, recommend an MRI of the right shoulder. [id number] ALFRED YAÑEZ MD [facility] [address] [place] [id number] 04/24/2022 13:24:17 04/24/2022 14:11:45 Full thickness rotator cuff tear [id number] M75.121 Assessment : Right shoulder significan t weakness and decreased active range of motion with pain over the biceps consistent with a full-thick ness rotator cuff tear. Plan: Given his severe pain and limitation despite a steroid injection and physical therapy, I would recommend an MRI of the right shoulder to further evaluate the rotator cuff. Given his level of pain, 1 oxycodone pill was prescribed to help him lay still for the entirety of an MRI. He will follow-up after the MRI for further recommenda tions [id number] ALFRED YAÑEZ MD [facility] [address] [place] [address] 05/14/2022 15:46:14 05/14/2022 16:45:27 Impingement syndrome of right shoulder region [id number] 74519 M75.41 Assessment : Right shoulder anterior impingemen t in the setting of poor resting scapular positionin g. I think this is more inflammati on based than anatomic injury. Plan: We again discussed the role of the scapula and rotator cuff and shoulder motion. I recommend physical therapy working on improve scapular positionin g to decrease his inflammati on. He will stay with Tylenol for right now for an anti-infla mmatory as diclofenac , Robaxin, and cyclobenza matthew have not been overly helpful in the past. [id number] TARUN KUMAR II, PT, DPT PHYSICAL THERAPY / HAND [facility]ERAPY [facility] [address] [place] [id number] 05/27/2022 14:34:28 05/29/2022 08:43:07 Cervical spondylosis [id number] M47.812 Muscle weakness 89830163 M62.81 Abnormal posture 4726191 2 R29.3 Impingemen t syndrome of right shoulder region [id number] 80939 M75.41 [id number] TARUN KUMAR II, PT, DPT PHYSICAL THERAPY / [facility] [address] [place] [address] 06/05/2022 15:10:58 06/10/2022 14:05:37 Muscle weakness 55845673 M62.81 Impingemen t syndrome of right shoulder region 7271119760 02994 M75.41 Muscular incoordination 78874068 R27.8 Cervical spondylosis 387 659307 M47.812 [id number] TARUN KUMAR II, PT, DPT PHYSICAL THERAPY / [facility] [address] [place] [id number] 06/17/2022 12:43:40 06/17/2022 13:24:42 Cervical spondylosis 095210917 M47.812 Muscle weakness 58158405 M62.81 Muscular incoordination 91414764 R27.8 Impingemen t syndrome of right shoulder region 0996200325 67035 M75.41 [id number] TARUN KUMAR II PT, DPT PHYSICAL THERAPY / [facility] [address] [place] [address] 06/25/2022 09:17:39 06/25/2022 10:56:01 Muscle weakness 07038096 M62.81 Impingemen t syndrome of right shoulder region 2713721067 43758 M75.41 Muscular incoordination 52842538 R27.8 Cervical spondylosis 387 860309 M47.812 [id number] TARUN KUMAR II, PT, DPT PHYSICAL THERAPY / [facility]Y [facility] [address] [place] [address] 07/02/2022 09:17:58 07/12/2022 10:23:18 Muscle weakness 48106241 M62.81 Cervical spondylosis 387 625229 M47.812 Muscular incoordination 65936070 R27.8 Cervical radiculopathy 39850787 M54.12 [id number] SAIMA LOPEZ PA-C [facility] [address] [place] [address] 07/11/2022 13:44:57 07/12/2022 08:09:46 Cervical arthritis 645308527 M46.92 Assessment : Cervical spine degenerati ve changes with associated right shoulder joint pain Plan: While he has performed adequate therapy with will addressing scapular strength, I believe many of his other symptoms, particular ly the radiating type pains are originatin g from above the shoulder. He may continue physical therapy with us here at the get him as needed but ultimately I would like him to get in with neurology for further cervical spine work-up. Pain of ri ght shoulder joint [id number] 9210957 M25.511 [id number] TARUN KUMAR II, PT, DPT PHYSICAL THERAPY / [facility]APY [facility] [address] [place] [address] 07/17/2022 14:43:23 07/23/2022 09:31:53 Muscle weakness 09580744 M62.81 Impingemen t syndrome of right shoulder region [id number] 51281 M75.41 Cervical spondylosis 387 157542 M47.812 Muscular incoordination 27676947 R27.8 Cervical radiculopathy 80186154 M54.12 [id number] MILLA VILLEGAS PA-C [facility] [address] [place] [address] 07/23/2022 11:12:39 07/24/2022 16:11:58 Cervical radiculopathy 81724491 M54.12 71-year-ol d male with right cervical radiculopa thy. Patient describes his pain in his C6/C7 distributi on. He has no focal weakness. However he has failed conservati ve treatment and symptoms have significan tly progressed over the last 6 months. Cervical x-rays performed at [facility] show significan t spondylosi s. There is slight reversal of the cervical curvature. There is loss of disc space height more so at C5-6. I would like to evaluate the patient further with a cervical MRI. This is to evaluate for neural impingemen t. We will also try the patient on a Medrol Dosepak. Dependent on the results of the cervical MRI he may be a candidate for epidural injections versus surgery. He will return to clinic after MRI is completed [id number] TARIK ENCARNACION MD [facility] [address] [place] [address] 08/07/2022 08:19:16 08/08/2022 08:54:13 Cervical radiculopathy 63326717 M54.12 [id number] SRI WALLACE PA-C [facility] [address] [place] [address] 10/25/2022 10:19:56 10/29/2022 10:54:45 Cervical radiculopathy 19183979 M54.12 [id number] TARIK ENCARNACION MD [facility] [address] [place] [address] 12/04/2022 13:11:00 12/05/2022 04:19:40 Cervical radiculopathy 51246225 M54.12 [id number] SRI WALLACE PA-C [facility] [address] [place] [address] 03/04/2023 10:22:06 03/05/2023 04:23:54 Cervical radiculopathy 09665155 M54.12 [id number] GRACE POZO APRN [facility] [address] [place] [address] 08/27/2023 10:38:47 08/28/2023 04:17:28 Cervical radiculopathy 45192509 M54.12 Health Concerns Section Related Observation LastModified by Organization Detai ls LastModified Time None Recorded Concern Status LastModified by Organization Details LastModified Time None Recorded Advance Directives Directive None Recorded Payers Insurance Date Sequence Insurance Name Policy Number Policy James Covered Member ID James Member ID Guarantor Name 08/24/2023 1 [employer] (MEDICARE REPLACEMENT/A DVANTAGE - PPO) Jesus Trent [id number] Jesus Trent Notes Date Note Type Note Provider Name and Address Organization Details Recorded Time 08/07/2022 text/html Mr. Trent is a 72 y/o male who is presenting with cervical spondylosis and right upper extremity pain. He reports that the pain began ~1 year ago but improved with PT. ~6 months ago, the pain recurred and has become progressively worse. He describes pain that radiates down his right arm in a C7 distribution and reports numbness involving his first three digits. He says that pain is worse with activity and standing and is improved with laying flat. He has been evaluated by orthopedics for his right shoulder with MRI demonstrating 'tendinosis and a low-grade articular sided tear of thesupraspinatus tendon with mild to moderate degenerative changes in the right shoulder with a possible labral tear' and was counseled to continue PT. He has trialed NSAIDs, steroids, and PT without significant improvement in his radiating symptoms. He has not trialed cervical injections. He has no clear signs/symptoms consistent with myelopathy. I have reviewed his MRI cervical spine from 08/01/22 and his x-rays from 07/11/2022. This reveals cervical spondylosis with straightening / reversal of the normal lordosis. He has severe left-sided C3/4 foraminal stenosis, left-sided C5/6 lateral recess and foraminal narrowing with mild deformation of the cord, and bilateral moderate to severe C6/7 foraminal stenosis. TARIK ENCARNACION MD [address] [place] [address], [phone], [facility] 08/07/2022 18:58:16 10/25/2022 text/html Mr. Trent is a 72-year-old male with right radicular upper extremity pain. He describes pain that radiates through the right shoulder down to his thumb, index, and middle fingers. He had physical therapy about 6 months ago that helped initially, but then his pain returned. At his last visit an MRI was reviewed that showed multiple levels of foraminal stenosis with mild to moderate cord compression. Foraminal stenosis on the right at C6-7 appears to be the most likely cause of his radicular symptoms. He was referred to pain management for a right C6 7 injection.He returns today for follow-up. He reports that the injection did not improve his pain. He did start Lyrica about 2 weeks ago, 50 mg at bedtime, and this has given him the most improvement. He is still bothered by the right upper extremity symptoms. He has seen Dr. Mariano in pain management. SRI WALLACE PA-C [address] [place], [phone], [facility] 10/25/2022 15:15:55 12/04/2022 text/html Mr. Trent is a 72 y/o male who is presenting for interval follow-up in relation to his radiating RUE pain that courses in a rough C7 distribution. Since our last visit, his Lyrica was increased to 75 mg BID. His pain has essentially resolved with this increase in medication. He has only encountered minimal side-effects related to this medication, including some hand swelling and occasional bouts of vertigo/dizziness that resolve quickly. He has no signs/symptoms of myelopathy. He underwent an EMG which revealed a moderate right C6/7 radiculopathy. I have re-reviewed his MRI C-spine. He has evidence of diffuse degenerative changes throughout his spine most pronounced at C5/6 and C6/7. There is a left-eccentric disc herniation at C5/6 with severe foraminal stenosis on the left and some cord deformation. There is bilateral L>R C6/7 foraminal stenosis. TARIK ENCARNACION MD [address] [place], [address], [facility] 12/04/2022 21:32:25 03/04/2023 text/html Mr. Trent is a 72-year-old male who initially was having right radicular arm pain. He has been taking Lyrica and has seen a 90% improvement in his upper extremity symptoms. He is very happy with his symptom management. An MRI of the cervical spine was reviewed at his previous visit that showed C5-6 and C6-7 degenerative changes with left greater than right foraminal stenosis. There was some deformity of the cord at C5-6. He does not have symptoms of myelopathy. SRI WALLACE PA-C [address] [place], [phone], [facility] 03/04/2023 11:22:34 08/27/2023 text/html Mr. Trent is a 73-year-old man who returns to the office in follow-up of his right upper extremity symptoms. He is currently managed on Lyrica 75 mg twice a day. GRACE POZO, CARE WORKER [address] [place], [address], [facility] 08/27/2023 13:16:46
--- OUTSIDE RECORDS SUMMARY | 2025-01-21 08:07 | XMS_ITS | Data Portability ---
Author Organization [facility] Address [address] [place] [address] Care Team Providers Care Equipment Operating Engineer Name Role Phone MARYCHUY DONATO Primary Care Provider TARIK BOONE Referring Provider Assessment Encounter Date Assessment Date Assessment LastModified by Organization Details LastModified Time 08/29/2022 08/29/2022 HPI: This is a 72-year-old gentleman with right-sided neck and arm pain He was referred by Dr. Boone from [facility] neurosurgery, has right upper extremity radicular pain. Dr. Boone requested a right C6-7 transforaminal JEANCARLOS. He is reportedly a surgical candidate pending results. No prior neck surgery. No prior back surgery. No prior interventional therapy. He works for [employer], neck pain inhibits his ability complete ADLs. Anticoagulants: None PMHx: Hypertension INJ Hx: None PSHx/Surgical Evaluation: Referred by Dr. Boone for C6-7 transforaminal JEANCARLOS, surgical candidate IMAGING: MRI cervical spine 07/2022 C2-3 moderate left facet arthropathy, no canal stenosis, mild left foraminal stenosis C3-4 broad-based disc bulge and left rib and right Vertebrogenic scarring, maxillary cuffing, no CCS, severe left NFS C4-5 disc bulge, mild left facet arthropathy, no CCS, no NFS C5-6 level 6 protrusion, left greater than right spurring, left lateral recess stenosis, severe left and mild right foraminal stenosis C6-7 disc protrusion extending to the right foramen, mild CCS, severe bilateral NFS C7-T1 no stenosis The above image findings were discussed with the patient. Current medications include oxycodone. The patient feels that they receive adequate analgesia and activity improvement with the medication. The patient denies side effects from the medications. UDS not obtained. ORT, PHQ-9 and IMELDA were reviewed today. MARTY report was reviewed today and is appropriate. Based upon the above I would consider the patient to be Low risk. PT The patient completed over six weeks of physical therapy in the past without benefit for their pain ASSESSMENT/PLAN This is a 72-year-old gentleman with right-sided neck and arm pain I will order C6-7 transforaminal JEANCARLOS. Pending results, can repeat with interlaminar JEANCARLOS for therapeutic treatment if he derives 3 months of relief. If he has short-term benefit, refer back to Dr. Boone. We discussed Lyrica as well, we will hold off on this for now. Okay for Debbie next month if he would like to try this. External records were reviewed and discussed as above, including imaging, clinical notes, and relevant labs. Much of this encounter is an electronic senior business manager/tra nslation of spoken language to printed text. The electronic translation of spoken language may permit erroneous or at times nonsensical words of phrases to be inadvertently transcribed; Although I have reviewed the note for such errors, some may still exist. 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 An initial [id number] counseling and education was done regarding patients symptoms related to their diagnosis in the office. Patient provided verbal consent for these services. A care management service for the diagnosis to be provided for at least 20 minutes of clinical time, directed by a physician or other qualified healthcare provider to be performed per calendar month including initial assessment, systematic assessment and monitoring, using applicable validated clinical rating scales, facilitation and coordination of behavioral health treatment, continuous relationship with the care team. These validated rating scales will be repeated monthly to reassess presence or absence of daily dysfunction and emotional stress that patient experiences due to the level of pain and suffering to help adjust treatment plans. Additionally, the patient was instructed to keep mood and sleep logs using a HIPAA-compliant software platform which the care team can access to monitor and care for the patient. Through this platform, the patient also has access to various behavioral health resources including journaling, guided meditation, and crisis support. The care team helped the patient set up their account and reviewed how to use the platform. Patient completed PHQ-9 with scoring below threshold for clinically necessary intervention (score less than 5). No suicidal ideation was endorsed. Patient was instructed to call our office if symptoms worsen. Patient completed JUAN CARLOS-7 with scoring below threshold for clinically necessary intervention (score less than 6). [email or web address] Not available 10/04/2022 09:51:15 10/10/2022 10/10/2022 Jesus Trent is a 72-year-old gentleman with right-sided neck and arm pain. He was referred by Dr. Boone from [facility] neurosurgery, has right upper extremity radicular pain. He works for [employer], neck pain inhibits his ability complete ADLs. Today's HPI: Patient reports no relief from his STEF on 09/23/22. He reports that he was hoping for significant relief from the injection, but again doesn't feel like he got any relief at all. States he plans to go back to see Dr. Boone to discuss Lyrica and possible surgical intervention. He continues with complaints of cervical pain, more right-sided and UE pain. Denies any recent injuries or falls. Anticoagulants: None PMHx: Hypertension INJ Hx: 09-23-2022 STEF TF Right C6-7 0% PSHx/Surgical Evaluation: Referred by Dr. Boone for C6-7 transforaminal JEANCARLOS, surgical candidate IMAGING: MRI cervical spine 07/2022 C2-3 moderate left facet arthropathy, no canal stenosis, mild left foraminal stenosis C3-4 broad-based disc bulge and left rib and right Vertebrogenic scarring, maxillary cuffing, no CCS, severe left NFS C4-5 disc bulge, mild left facet arthropathy, no CCS, no NFS C5-6 level 6 protrusion, left greater than right spurring, left lateral recess stenosis, severe left and mild right foraminal stenosis C6-7 disc protrusion extending to the right foramen, mild CCS, severe bilateral NFS C7-T1 no stenosis Injection: Current medications include oxycodone. The patient feels that they receive adequate analgesia and activity improvement with the medication. The patient denies side effects from the medications. UDS not obtained. ORT, PHQ-9 and IMELDA were reviewed today. MARTY report was reviewed today and is appropriate. Based upon the above I would consider the patient to be Low risk. PT The patient completed over six weeks of physical therapy in the past without benefit for their pain PLAN -Will refer back to Dr. Boone given no relief of symptoms with STEF -Patient may f/u in clinic as needed The patient is counseled regarding opioid pain medication and has been informed of high risk factors which include but not limited to dependency, addiction, respiratory depression, and . The patient understands and accepts these risks. Medications were evaluated and reviewed. Medications are tolerated well without reported side effects. Use of the medication does allow the patient to perform the activities of daily living and function without being in severe pain. Pt's self reported ORT score is 0. Pt's risk assessment level is placed at moderate due to multiple co morbidities and poly pharmacy. [email or web address] Not available 10/10/2022 12:55:35 10/12/2022 10/12/2022 Care management services and General Behavioral Health Integration (CPT 93456) was provided for at least 20 minutes of clinical time, directed by a physician or other qualified healthcare provider in accordance with state regulation. Services included systematic assessment and monitoring, using applicable validated clinical rating scales, facilitation and coordination of behavioral health treatment, and continuous relationship with the care team. Patient has been provided a HIPAA-compliant software platform which the care team can access to monitor and care for the patient. This platform provides mindfulness activities, patient education materials pertaining to the patient s psychosocial status and diagnosis, along with crisis resource information. Validated clinical rating scales will be repeated monthly to reassess presence or absence of daily dysfunction and emotional stress that may be related to physical health conditions, social or environmental factors. These assessments will guide us to provide a better pain management treatment. Care plans will continue to be updated monthly in accordance to changes in behavioral and physical health status. Medications will be closely monitored and adjusted according to validated rating scales and subjective data provided by patient (mood and sleep). Complete subjective and objective patient data is available in the patient records. Patient completed JUAN CARLOS-7 on 10/12/2022 with scoring of 0 , indicating 0 4: minimal anxiety. Clinically validated interventions were considered and subsequently presented to the patient for their consideration and agreement. Patient was instructed to call our office if symptoms worsen. Through the backstitch platform, the patient was assigned the Reoccurring Assessments activity template, which includes informational videos, journals, and JUAN CARLOS-2 / JUAN CARLOS-7, PHQ-9, PDUQp, Oswestry - Lower Back, ORT-OUD. Patient was not contacted by our clinical support team but provided resources through the backstitch platform. [email or web address] Not available 11/11/2022 09:47:45 Plan of Treatment Reminders Order Date Submit Date Provider Last Modified By Organization Details Last Modified Time Details Appointments None recorded. Lab None recorded. Referral None recorded. Procedures epidural steroid injection, cervical transforami nal (PROC) - STEF TF Right C6-[address] Mariano in [place] with sedation, hold NSAIDs (diclofenac , Ibuprofen) for 5 days beforehand 2022 023 Not available 3 10:21:45 Surgeries None recorded. Imaging None recorded. Medication Orders None recorded. Patient TargetsNo targets recorded. Patient InstructionsNo instructions recorded. Reason for Referral None Reported. Problems Name Problem SNOMED Code Status Onset Date Resolution Date Notes Provider Name and Address Organization Details Recorded Time Cervical radiculopa thy 55611350 Active 2022 Not Available [facility] 3 10:10:34 Cervical spondylosi s without myelopathy 525499795 Active 2022 Cherelle massey [facility] 3 15:32:12 Degenerati on of cervical interverte bral disc 20554615 Active 2022 Cherelle massey [facility] 3 08:47:31 Pain disorder with psychologi cirilo factor 728978938578 Active 2022 Arben massey [facility] 3 09:51:15 Problem Notes None recorded. Procedures Surgical History Date Name Laterality Status Provider Name and Address Organization Details Recorded Time 09/23/19 23 Cervical JEANCARLOS: Transforaminal (1 Level Unilateral) completed CONNIE MARIANO MD [address] [place] [address], [id number], [facility] 09/23/2022 16:51:56 Cholecystectomy completed Cherelle KEYES [facility] 08/29/2022 08:16:10 Imaging Results None recorded. Procedure Notes None recorded. Medical Equipment None Reported. Allergies Allergen ID Allergen Name Allergen Category Reaction Reaction Severity Criticality Documentation Date Start Date Code Code System Note Provider Name and Address Organization Details Recorded Time 328804 Keflex medicatio n Not available Not available Not available 10/10/202210311 7 RxNorm AG HUSAIN NP [address] [facility] [place], [id number] [place] [address] [facility] 3 11:20:18 Medications Name Sig Start Date Stop Date Status Note LastModified by Organization Details LastModified Time cyclobenzap rine 10 mg tablet 08/27 completed Not Available Not Available Not Available lisinopril 20 mg-hydrochl orothiazide 12.5 mg tablet TAKE 1 TABLET BY MOUTH ONCE DAILY active Not Available Not Available No t Available methocarbam ol 750 mg tablet 10/10 completed Not Available Not Available Not Available diclofenac sodium 75 mg tablet,la yed release 10/10 completed Not Available Not Available Not Available montelukast 10 mg tablet TAKE 1 TABLET BY MOUTH ONCE DAILY active Not Available Not Available No t Available methylpredn isolone 4 mg tablets in a dose pack TAKE BY MOUTH DIRECTED ON INSIDE OF PACKAGE 08/26 completed Not Available Not Available Not Available oxycodone 5 mg tablet 10/10 completed Not Available Not Available Not Available pregabalin 50 mg capsule TAKE 1 CAPSULE BY MOUTH ONCE DAILY active Not Available Not Available No t Available pregabalin 75 mg capsule TAKE 1 CAPSULE BY MOUTH THREE TIMES DAILY active Not Available Not Available No t Available Suprep Bowel Prep Kit 17.5 gram-3.13 gram-1.6 gram oral solution TAKE DIRECTED 08/27 completed Not Available Not Available Not Available Vitals Date Recorded Body height Body mass index (BMI) Body weight Oxygen saturation Oxygen saturation in Arterial blood by Pulse oximetry Heart rate Systolic blood pressure Diastolic blood pressure Provider Name and Address Organization Details Last Updated DateTime 3 190.5 cm 34.4 kg/m2 238302. 9 g 97 % 97 % 94 /min 114 mm[Hg] 76 mm[Hg] Cherelle stamper [facility] 08:16:27 Date Recorded Oxygen saturation Oxygen saturation in Arterial blood by Pulse oximetry Body mass index (BMI) Body weight Provider Name and Address Organization Details Last Updated DateTime 10/10/2022 97 % 97 % 33.7 kg/m2 649686.9 4 g AG HUSAIN NP [address] [place], [address], [facility] 10/10/2022 11:19:49 Date Recorded Body height Provider Name an d Address Organization Details Last Updated DateTime 10/10/2022 190.5 cm Kaitlynn Cueva [facility] 10/10/2022 11:09:06 Social History Question Answer Notes LastModified by Organizat ion Details LastModified Time Tobacco Smoking Status Former Smoker Kaitlynn massey [facility] 10/10/2022 11:10:29 Do You Have An Advance Directive? No [email or web address] Information not available 10/10/2022 What Type Of Diet Are You Following? REGULAR [email or web address] Information not available 10/10/2022 Which Illicit Or Recreational Drugs Have You Used? None [email or web address] Information not available 10/10/2022 What Is The Highest Grade Or Level Of School You Have Completed Or The Highest Degree You Have Received? AE15966-2 [email or web address] Information not available 10/10/2022 What Was The Date Of Your Most Recent Tobacco Screening? 08/29/2022 [email or web address] Information not available 10/10/2022 What Is Your Relationship Status? [email or web address] Information not available 08/29/2022 How Much Tobacco Do You Smoke? No [email or web address] Information not available 10/10/2022 Have You Used IV Drugs? No [email or web address] Information not available 10/10/2022 Sex: Unknown Functional Status Question Answer Note LastModified by Organizat ion Details LastModified Time What is your level of alcohol consumption? Occasional [email or web address] Information not available 10/10/2022 Are you currently employed? No Information not available 10/10/2022 Are you able to walk? 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 Occasional Information not available 10/10/2022 Mental Status None recorded. Family History Relationship Description Onset Age of this Age Resolved Age Notes LastModified by Organization Details LastModified Time Father Heart disease [email or web address] Not available 2022 08:15:59 Medical History Condition Response Bipolar Disease N Coronary Artery Disease N Seizure Disorder N Gout N Thyroid Disease N Atrial Fibrillation N Head Trauma/Injury N Hernia N Depression N COPD N Anxiety Disorder N Acid Reflux (GERD) N Cancer N Stroke N Skin Disorder N High Cholesterol N Liver Disease N Rheumatoid Arthritis N Fibromyalgia N Headaches N Kidney Disease N Autoimmune Disease N Osteoarthritis N Neurosurgery N DVT N Peptic Ulcer Disease N Anemia N Heart Attack (DE) N Diabetes N Cardiomyopathy N Bleeding Disorder N CHF N AIDS/HIV N Inflammatory Bowel Disease N Dementia N Asthma N Substance Abuse N Sleep Apnea Y Hepatitis N Heart Disease N Pulmonary Embolism N Chronic Low Back Pain Y Hypertension Y Osteoporosis N Past Encounters Encounter ID Performer Location Encounter Start Date Encounter Closed Date Diagnosis/Indication Diagnosis SNOMED-CT Code Diagnosis ICD10 Code Diagnosis Note [id number] MD Sterling RUIZ [address] [place] [address] 08/29/2022 08:11:41 08/29/2022 09:41:38 Cervical radiculopathy 70082235 M54.12 [id number] MD Honorio RUIZington [address] [place] [address] 09/23/2022 12:54:17 09/23/2022 13:59:17 Cervical radiculopathy 44462053 M54.12 [id number] MD Sterling RUIZ [address] [place] [address] 10/04/2022 09:49:59 10/04/2022 11:09:48 Pain disorder with psychological factor 6666233866 07 F45.42 [id number] MD Sterling RUIZ [address] [place] [address] 10/10/2022 10:37:10 10/10/2022 11:51:36 Cervical radiculopathy 77770689 M54.12 Long-term drug therapy 997545910 Z79.899 no UDS 10/10/2022 [id number] CHRISTY LAWRENCE MD [place] [address] [place] [address] 11/11/2022 09:46:30 11/11/2022 09:55:14 Pain disorder with psychological factor 8409500705 07 F45.42 Health Concerns Section Related Observation LastModified by Organization Detai ls LastModified Time None Recorded Concern Status LastModified by Organization Details LastModified Time None Recorded Advance Directives Directive N: Payers Insurance Date Sequence Insurance Name Policy Number Policy James Covered Member ID James Member ID Guarantor Name 11/11/2022 1 [employer] (MEDICARE REPLACEMENT/A DVANTAGE - PPO) Jesus Trent [id number] Jesus Trent Notes Date Note Type Note Provider Name and Address Organization Details Recorded Time 08/29/2022 text/html Neck painReporte d bypatient.Onset:da te of onset: (January 2021) Location:right paraspinal; radiating to the right upper extremity to the hand Duration:intermitt ent; Depends on positioning Context:started without cause Severity:current pain level: 3/10; Patient states that his pain is 3-4/10 but tingle in arm is 8/10 Alleviating Factors:relieved by changing position Aggravating Factors:movement/p ositioning Timing:varies throughout the day Prior Imaging:MRI ([facility]) Associated Symptoms:tingling Previous Cervical Surgery:none Previous Injections:none Previous PT:completed PT; dates: (March 2022-Jun 2022); response to therapy: temporary pain improvement; Patient went to 1st session to [facility] and then with [facility] with 's office. Patient states that it helped but then pain returned and was worse. 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 Working:no Prior Pain Management:no Functional Scores:Neck Disability Index (NDI) Completed: 18 CONNIE MARIANO MD [address] [place], [address], [facility] 08/29/2022 09:15:14 10/10/2022 text/html Follow-up (meds & injections)Reporte d bypatient.Improvem ent:Pain is the same as compared to last visit. Pain Scores:Average pain- 5/10; Current pain- 6/10; Worst pain- 10/10 Recent Injections: 023 STEF TF Right C6-7 0% Current Analgesics:no medication from clinic at this time Functional Assessment/Disabil ity IndexLiving independently.; Able to bathe/groom without assistance.; Walking without assistance. Physical Therapy:Mar 2022-Jul 2022 PT for neck no relief.Neck painReported bypatient.Onset:da te of onset: (January 2021) Location:right paraspinal; radiating to the right upper extremity to the hand Duration:intermitt ent; Depends on positioning Context:started without cause Severity:Patient states that his pain is 3-4/10 but tingle in arm is 8/10 Alleviating Factors:relieved by changing position Aggravating Factors:movement/p ositioning Timing:varies throughout the day Prior Imaging:MRI ([facility]) Associated Symptoms:tingling Previous Cervical Surgery:none Previous Injections:none Previous PT:completed PT; dates: (March 2022-Jun 2022); response to therapy: temporary pain improvement; Patient went to 1st session to [facility] and then with [facility] with 's office. Patient states that it helped but then pain returned and was worse. Previous resident care aid:none Medications History:NSAIDS: (Diclofenac-Effect nadira); muscle relaxants: (Methocarbamol-Not effective Robaxin-Effective) Functional Assessment/Disabil ity IndexLiving Independently; Able to bathe/groom without assistance. Working:no Prior Pain Management:no Functional Scores:Neck Disability Index (NDI) Completed: 18 Mr. Lee in clinic today for a follow up visit. Patient reports continued pain in neck. Patient notes tingling in right forearm, right thumb, index and middle fingers. Patient states no falls since last visit. 09-23-2022 STEF TF Right C6-7 0% AG HUSAIN NP [address] [place], [address], [facility] 10/10/2022 12:56:05
--- OUTSIDE RECORDS SUMMARY | 2025-01-21 08:07 | XMS_ITS | Clinical Summary ---
Author Organization Healthcare Address [address] [place] [address] Care Team Providers Care Transformer Inspector Name Role Phone Unavailable Primary Care Provider Unavailabl e Immunizations Immunization Administration Dates Next Due Hep A, Unspecified 07/28/2001,12/19/2000 IPV 10/27/2014 Influenza, seasonal, injectable 05/29/2014 Tdap 04/15/2012 Typhoid, ViCPs 12/19/2000 Typhoid, oral 03/01/2005 Yellow Fever 10/27/2014 Zoster, live 04/24/2011 Family History Medical History Relation Name Comments Diabetes Father Heart murmur Father Other cancer Father Diabetes Mother Other cancer Mother Diabetes Other Relation Name Status Comments Father Mother Other Social History Tobacco Use Types Packs/Day Years Used Date Smoking Tobacco: Former Alcohol Use Standard Drinks/Week Comments Yes 0 (1 standard drink = 0.6 oz pure alcohol) Alcoholic Drinks/day: Social alcohol use Sex and Gender Information Value Date Recorded Sex Assigned at Not on file Legal Sex Male 7:32 PM EDT Gender Identity Not on file Sexual Orientation Not on file Last Filed Vital Signs Vital Sign Reading Time Taken Comments Blood Pressure - - Pulse - - Temperature - - Respiratory Rate - - Oxygen Saturation - - Inhaled Oxygen Concentration - - Weight 112 kg (247 lb 15.9 oz) 10/27/2014 9:24 A M EDT Height 190.5 cm (6' 3 ) 10/27/2014 9:24 AM EDT Body Mass Index 31 10/27/2014 9:24 AM EDT Plan of Treatment Not on file
--- OUTSIDE RECORDS SUMMARY | 2025-01-21 08:07 | XMS_ITS | Data Portability ---
Author Organization [facility] - Shay martinez MD, Main Office Address [address] [place] [address], [address] [place] [address] Care Team Providers Care Harnessmaker Apprentice Name Role Phone MARYCHUY DONATO Primary Care Provider Assessment No assessment recorded. Plan of Treatment Reminders Order Date Submit Date Provider Last Modified By Organization Details Last Modified Time Details Appointments None record ed. Lab None record ed. Referral None record ed. Procedures None record ed. Surgeries None record ed. Imaging None record ed. Medication Orders None record ed. Patient TargetsNo targets recorded. Patient Instructions Encounter Date Encounter Id Patient Instructions Last Modified By Organization Details Last Modified Time 11/05/2022 [id number] Neck Pain: Care Instructions [email or web address] Not available 11/05/2022 12:52:27 Reason for Referral None Reported. Results Created Date Observation Date Name Description Value Unit Range Abnormal Flag Note LastModifiedBy Organization Detail LastModifiedTime 11/06/19 23 11/05/2022 elect romyo gram + nerve condu ction study No observ ation record ed. BARCODE Not Available 2022 12:57:08 Result Notes None recorded. Problems No Known Problems Procedures Surgical History Date Name Laterality Status Provider Name and Address Organization Details Recorded Time 11/05/2022 NCV/EMG completed Grayson Hernandez MD 11/05/2022 12:52:02 Imaging Results None recorded. Procedure Notes None recorded. Medical Equipment None Reported. Allergies No known drug allergies Medications Name Sig Start Date Stop Date Status Note LastModified by Organization Details LastModified Time cyclobenzaprin e 10 mg tablet active Not Available Not Availab le Not Available lisinopril 20 mg-hydrochloro thiazide 12.5 mg tablet TAKE 1 TABLET BY MOUTH ONCE DAILY active Not Available Not Available No t Available methocarbamol 750 mg tablet active Not Available Not Availabl e Not Available diclofenac sodium 75 mg tablet,delayed release active Not Available Not Available Not Available montelukast 10 mg tablet TAKE 1 TABLET BY MOUTH ONCE DAILY active Not Available Not Available No t Available methylpredniso lone 4 mg tablets in a dose pack TAKE BY MOUTH DIRECTED ON INSIDE OF PACKAGE active Not Available Not Available No t Available oxycodone 5 mg tablet active Not Available Not Available Not Available pregabalin 50 mg capsule TAKE 1 CAPSULE BY MOUTH ONCE DAILY active Not Available Not Available No t Available pregabalin 75 mg capsule active Not Available Not Available N ot Available Vitals None Recorded Social History None recorded. Functional Status None recorded. Mental Status None recorded. Family History Nothing Reported. Medical History No medical history recorded. Past Encounters Encounter ID Performer Location Encounter Start Date Encounter Closed Date Diagnosis/Indication Diagnosis SNOMED-CT Code Diagnosis ICD10 Code Diagnosis Note [id number] Shay Hernandez MD Main Office [address], [address] [place] [address] 11/05/2022 12:15:30 11/05/2022 12:53:49 Cervical radiculopathy 29216738 M54.12 Moderate to severe right C6/7 radiculopa thy. Health Concerns Section Related Observation LastModified by Organization Detai ls LastModified Time None Recorded Concern Status LastModified by Organization Details LastModified Time None Recorded Advance Directives Directive None Recorded Payers Insurance Date Sequence Insurance Name Policy Number Policy James Covered Member ID James Member ID Guarantor Name 11/05/2022 1 [employer] (MEDICARE REPLACEMENT/A DVANTAGE - PPO) Jesus Trent [id number] Jesus Trent
--- OUTSIDE RECORDS SUMMARY | 2025-01-21 08:07 | XMS_ITS ---
Author Organization Unknown TREATMENT PLAN [facility] Start Date Provider Encounter for Check-up [id number] [facility]
[2025-01-21 08:45] LABS: Alanine Aminotransferase 16 U/L (12-78); Albumin Level 4.2 g/dl (3.5-5.0); Albumin/Globulin Ratio 1.8 (1.1-1.8); Alkaline Phosphatase 70 U/L (38-126); Anion Gap 6.6 mEq/L (5-15); Aspartate Amino Transferase 22 U/L (17-59); Bilirubin,Total 0.6 mg/dl (0.2-1.3); Blood Urea Nitrogen 19 mg/dl (9-20); Calcium 9.5 mg/dl (8.4-10.2); Carbon Dioxide 30 mmol/L (22.0-30.0); Chloride 106 mmol/L (98-107); Chol/HDL Ratio 5.7 (1-3.5); Cholesterol 205 mg/dl (140-200); Estimated Glomerular Filt Rate 59 ml/min (>60); GFR (African American) 71 ML/MIN (>60); Globulin 2.3 g/dL (1.3-3.2); Glucose 130 mg/dl (74-100); HDL Cholesterol 36 mg/dl (40-60); Potassium 4.6 mmoL/L (3.5-5.1); Sodium 138 mmol/L (136-145); Total Protein,Serum 6.5 g/dl (6.3-8.2); Triglycerides 202 mg/dl (30-150); VLDL Cholesterol 40 mg/dL (0-40)
[2025-01-21 08:56] LABS: Direct LDL Cholesterol 112.55 mg/dL (100-129)
[2025-01-21 09:17] LABS: Prostate Specific Ag Screen 0.9 ng/ml (0.0-4.0)
== END 2025-01-21 23:59 | disposition home or self-care (01) ==
LOC: LAB 08:04
PROVIDERS: PCP Family Medicine; Visit Provider Family Medicine
DX: Z12.5 Encounter for screening for malignant neoplasm of prostate (principal); I10 Essential (primary) hypertension; E78.5 Hyperlipidemia, unspecified; R73.01 Impaired fasting glucose
CPT/HCPCS: 36415; 80053; 80061; 83036; G0103

== ENCOUNTER 2025-01-24 11:47 | Outpatient (CLI) | payer MEDICARE, SELFPAY ==
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
--- OUTSIDE RECORDS SUMMARY | 2025-01-24 11:50 | XMS_ITS | Data Portability ---
Author Organization [facility] - RJ Castillo [place] [facility] Address [address] [place] [address] Care Team Providers Care Data Entry Machine Operator Name Role Phone MARYCHUY DONATO Referring Provider MARYCHUY DONATO Primary Care Provider ALFRED YAÑEZ Orthopedic Surgeon Assessment Encounter Date Assessment Date Assessment LastModified [...] to assess his response to the injection. [email or web address] Not available 08/07/2022 18:58:04 10/25/2022 10/25/2022 Mr. [...] occult findings concerning for development of myelopathy. [email or web address] Not available 12/04/2022 21:32:12 03/04/2023 03/04/2023 Mr. Ternt is a 72-year-old male with C5-6 and [...] are satisfied with this plan of care. [email or web address] Not available 08/27/2023 13:15:26 Plan of Treatment Reminders Order Date Submit Date Provider Last Modified By Organization Details Last Modified Time Details Appointments None recorded. Lab None recorded. Referral None recorded. Procedures None recorded. Surgeries None recorded. Imaging None recorded. Medication Orders Lyrica 75 mg capsule [email or web address] [facility], [address], [address], 4 08:55:32 Lyrica 75 mg capsule 023 023 [facility], [address], [address], 3 11:22:21 Lyrica 75 mg capsule 023 023 [facility], [address], [address], 3 11:46:11 Patient TargetsNo targets recorded. Patient InstructionsNo instructions recorded. Reason for Referral None Reported. Results Created Date Observation Date Name Description Value Unit Range Abnormal Flag Note LastModifiedBy Organization Detail LastModifiedTime 07/11/20 22 07/11/2022 XR, cervi cirilo spine , 2 or 3 view [place] [facility] [address] [place] [address] Roel matos Name: JESUS Lane MANUEL matos [...] Vega MD on 022 2:32 PM [email or web address] [facility] [address] , [place], [address], 07/11/2022 16:55:14 07/24/20 22 04/26/2021 XR, cervi cirilo spine , 4 or 5 view No observ ation record ed. BARCODE Not Available 2021 11:33:16 07/24/20 22 04/26/2021 XR, shoul binta, 2 or more view No observ ation record ed. BARCODE Not Available 2021 11:33:17 08/01/20 22 08/01/2022 MRI, cervi cirilo spine , w/o contr ast [facility] [address] [place] [address], [place] [address] Roel t Name: JESUS Quintanilla Roel t [...] fied. The visual ized spinal cord and insurance adjuster ior fossa of the brain are normal [...] lawson MD on 2021 10:58 AM [email or web address] [facility] [address] [place] [address], [address], 09/03/2022 14:07:08 11/06/19 23 11/05/2022 nerve condu ction study /EMG (PROC ) No observ ation record ed. [email or web address] Not Available 11/06 11:26:45 Result Notes None recorded. Problems Name Problem SNOMED Code Status Onset Date Resolution Date Notes Provider Name and Address Organization Details Recorded Time Impingem ent syndrome of right shoulder region 39339144465 9102 Active 2021 TARUN KUMAR II, PT, DPT [address] [place] [address], [address] [place] [address] , [facility] 2 13:21:51 Muscular incoordi nation 47451135 Active 2021 TARUN KUMAR II, PT, DPT [address] [place] [address], [address] [place] [address] , [facility] 2 13:21:52 Muscle weakness 35317733 Active 2021 TARUN KUMAR II, PT, DPT [address] [place] [address], [address] [place] [address] , [facility] 2 13:21:52 Cervical spondylo sis 756260919 Active 2021 TARUN KUMAR II PT, DPT [address] [place] [address], [address] [place] [address] , [facility] 2 13:21:54 Cervical radiculo valeria 54507596 Active 2021 MILLA VILLEGAS PA-C [address] [place] [address], [address] [place] [address] , [facility] 2 14:05:52 Abnormal results of cardiova scular function studies 431792405 Completed 201411/01/2016 From Automate d Load;Pro vider: Tarun Vazquez;Sta tus: Active TARUN VAZQUEZ MD [address] [place], [address] , [facility] 7 08:54:20 Hyperten sive disorder 47542154 Active 2014 From Automate d Load;Pro vider: Tarun Vazquez;Sta tus: Active Not Available [facility] 6 03:15:09 Hyperlip idemia 54811798 Active 2014 From Automate d Load;Pro vider: Tarun Vazquez;Sta tus: Active Not Available [facility] 6 03:15:09 Problem Notes None recorded. Procedures Surgical History Date Name Laterality Status Provider Name and Address Organization Details Recorded Time 07/17/20 PT Manual Therapy completed TARUN KUMAR II, PT, DPT [address] [place], [address], [facility] 08/05/2022 11:50:34 07/17/20 PT Therapeutic Exercise completed TARUN KUMAR II, PT, DPT [address] [place], [address], [facility] 08/05/2022 11:50:00 07/02/20 PT Manual Therapy completed TARUN KUMAR II, PT, DPT [address] [place], [address], [facility] 08/01/2022 22:50:17 07/02/20 PT Therapeutic Exercise completed TARUN KUMAR II, PT, DPT [address] [place], [address], [facility] 08/01/2022 22:49:55 06/25/20 PT Manual Therapy completed TARUN KUMAR II, PT, DPT [address] [place], [address], [facility] 06/25/2022 10:51:59 06/25/20 PT Therapeutic Exercise completed TARUN KUMAR II, PT, DPT [address] [place], [address], [facility] 06/25/2022 10:50:39 11/07/20 22 PT Manual Therapy completed TARUN HICKST II, PT, DPT [address] [place], [address], [facility] 06/17/2022 13:20:19 06/17/20 22 PT Therapeutic Exercise completed TARUN HICKST II, PT, DPT [address] [place], [address], [facility] 06/17/2022 13:20:03 06/05/20 22 PT Manual Therapy completed TARUN HICKST II, PT, DPT [address] [place], [address], [facility] 06/30/2022 19:03:16 06/05/20 22 PT Therapeutic Exercise completed TARUN HICKST II, PT, DPT [address] [place], [address], [facility] 06/30/2022 19:02:52 05/27/20 22 PT Evaluation - Low Complexity completed TARUN HICKST II, PT, DPT [address] [place], [address], [facility] 06/17/2022 13:27:24 05/27/20 22 PT Therapeutic Exercise completed TARUN HICKST II, PT, DPT [address] [place], [address], [facility] 06/17/2022 13:27:42 04/02/20 22 Injection Joint/Bursa, Major completed ALFRED YAÑEZ MD [address] [place], [address], [facility] 04/02/2022 12:33:58 Cholecystectomy completed Tessa Alexander [facility] 04/02/2022 11:08:30 Other completed Mariama Norman [facility] 11/01/2016 08:06:10 Other completed Mariama [facility] 11/01/2016 08:06:19 Imaging Results None recorded. Procedure Notes None recorded. Medical Equipment None Reported. Allergies Allergen ID Allergen Name Allergen Category Reaction Reaction Severity Criticality Documentation Date Start Date Code Code System Note Provider Name and Address Organization Details Recorded Time 691977 Keflex medicatio n rash Not available Not available 07/04/20162014 7 RxNorm React ion: RASH; Comme nt: Creat ed By: Michael conrad Date: 07/28 3:54: 21 PM; Not Available [facility] 6 14:14:04 478811 cyclobenz aprine medicatio n Not available Not available Not available 05/27/2022 50925 RxNorm Tessa Alexander [facility] 16:45:40 Medications Name Sig Start Date Stop [...] Updated DateTime 08/27/2023 190.5 cm 34.1 kg/m2 759726. 72 g 110 mm[Hg] 84 mm[Hg] [facility] 4 11:05:27 Date Recorded Body height Body mass index (BMI) Body weight Systolic blood pressure Diastolic blood pressure Provider Name and Address Organization Details Last Updated DateTime 10/25/2022 190.5 cm 34 kg/m2 897756.1 2 g 132 mm[Hg] 82 mm[Hg] Clarita Beasley [facility] 3 10:34:58 Date Recorded Body height Body mass index (BMI) Body weight Systolic blood pressure Diastolic blood pressure Provider Name and Address Organization Details Last Updated DateTime 12/04/2022 190.5 cm 34 kg/m2 753228.1 2 g 130 mm[Hg] 82 mm[Hg] Clarita Beasley [facility] 3 13:30:05 Date Recorded Body height Body mass index (BMI) Body weight Systolic blood pressure Diastolic blood pressure Provider Name and Address Organization Details Last Updated DateTime 03/04/2023 190.5 cm 34.1 kg/m2 699946. 72 g 102 mm[Hg] 70 mm[Hg] [facility] 3 10:40:26 Date Recorded Body height Body mass index (BMI) Body weight Systolic blood pressure Diastolic blood pressure Provider Name and Address Organization Details Last Updated DateTime 08/07/2022 190.5 cm 34 kg/m2 190970.1 2 g 140 mm[Hg] 82 mm[Hg] [facility] 2 08:36:49 Social History Question Answer Notes LastModified by [employer] ion Details LastModified Time Tobacco Smoking Status Never Smoker Mariama Norman [facility] 11/01/2016 08:05:21 Which Of Your Hands Is [...] 08:05:00 Medical History Condition Response Allergies/Hayfever Y Other N Anxiety/Depression N Gout N Thyroid Disease N Kidney Stones N Heart Conditions N Hernia N Migraines N COPD N Glaucoma N Pneumonia N Skin Problems N Immune System Disorder N Anesthesia Complications N Heart Attack (OK) N Mental Illness N Neurological Problems N [...] SNOMED-CT Code Diagnosis ICD10 Code Diagnosis Note [id number] TARUN VAZQUEZ MD CARDIOLOG Y [facility] [address] [place] [address] 11/01/2016 08:26:28 11/01/2016 09:48:32 Hypertensive disorder 06570600 I10 Management of this problem was reviewed with the patient. No changes recommende d, status for this problem is stable at this time.I told the patient that he did not need to make a trip to see me to refill his blood pressure medication s and this could be performed by Dr. Donato. Hyperlipidemia 41156216 E78.5 Management of this problem was reviewed with the patient. No changes recommende d, status for this problem is stable at this time. [id number] ALFRED YAÑEZ MD [facility] [address] [place] [address] 04/02/2022 10:30:13 04/02/2022 11:30:07 Inflammation of rotator cuff tendon 990949921 M67.813 Assessment : Right shoulder rotator cuff [...] recommend an MRI of the right shoulder. [id number] ALFRED YAÑEZ MD [facility] [address] [place] [address] 04/24/2022 13:24:17 04/24/2022 14:11:45 Full thickness rotator cuff tear 188558094 M75.121 Assessment : Right shoulder significan t [...] after the MRI for further recommenda tions [id number] ALFRED YAÑEZ MD [facility] [address] [place] [address] 05/14/2022 15:46:14 05/14/2022 16:45:27 Impingement syndrome of right shoulder region 2233365688 64367 M75.41 Assessment : Right shoulder anterior impingemen [...] not been overly helpful in the past. [id number] TARUN KUMAR II, PT, DPT PHYSICAL THERAPY / [facility]AP[facility] [address] [place] [address] 05/27/2022 14:34:28 05/29/2022 08:43:07 Cervical spondylosis 475452774 M47.812 Muscle weakness 20949929 M62.81 Abnormal posture 9228206 2 R29.3 Impingemen t syndrome of right shoulder region 8258767630 23379 M75.41 [id number] TARUN KUMAR II, PT, DPT PHYSICAL THERAPY / [facility] [address] [place] [address] 06/05/2022 15:10:58 06/10/2022 14:05:37 Muscle weakness 29655012 M62.81 Impingemen t syndrome of right shoulder region 8595504807 87885 M75.41 Muscular incoordination 68894428 R27.8 Cervical spondylosis 387 834297 M47.812 [id number] TARUN KUMAR II, PT, DPT PHYSICAL THERAPY / [facility] [address] [place] [address] 06/17/2022 12:43:40 06/17/2022 13:24:42 Cervical spondylosis 718643491 M47.812 Muscle weakness 06971017 M62.81 Muscular incoordination 79299001 R27.8 Impingemen t syndrome of right shoulder region 1538370366 11377 M75.41 [id number] TARUN KUMAR II PT, DPT PHYSICAL THERAPY / [facility] [address] [place] [address] 06/25/2022 09:17:39 06/25/2022 10:56:01 Muscle weakness 02653583 M62.81 Impingemen t syndrome of right shoulder region 5062865268 86335 M75.41 Muscular incoordination 79582205 R27.8 Cervical spondylosis 387 087532 M47.812 [id number] TARUN KUMAR II, PT, DPT PHYSICAL THERAPY / [facility] [address] [place] [address] 07/02/2022 09:17:58 07/12/2022 10:23:18 Muscle weakness 50508729 M62.81 Cervical spondylosis 387 597823 M47.812 Muscular incoordination 37919711 R27.8 Cervical radiculopathy 99693809 M54.12 [id number] SAIMA LOPEZ PA-C [facility] [address] [place] [address] 07/11/2022 13:44:57 07/12/2022 08:09:46 Cervical arthritis 447407847 M46.92 Assessment : Cervical spine degenerati ve [...] work-up. Pain of ri ght shoulder joint 4807916199 5668076 M25.511 [id number] TARUN KUMAR II, PT, DPT PHYSICAL THERAPY / [facility] [address] [place] [address] 07/17/2022 14:43:23 07/23/2022 09:31:53 Muscle weakness 86850894 M62.81 Impingemen t syndrome of right shoulder region 5464238981 70587 M75.41 Cervical spondylosis 387 457462 M47.812 Muscular incoordination 20618128 R27.8 Cervical radiculopathy 10558453 M54.12 [id number] MILLA VILLEGAS PA-C [facility] [address] [place] [address] 07/23/2022 11:12:39 07/24/2022 16:11:58 Cervical radiculopathy 16944531 M54.12 71-year-ol d male with right cervical radiculopa thy. Patient describes his pain in his C6/C7 distributi on. He has no focal weakness. However he has failed conservati ve treatment and symptoms have significan tly progressed over the last 6 months. Cervical x-rays performed at [facility] show significan t spondylosi s. There [...] return to clinic after MRI is completed [id number] TARIK ENCARNACION MD [facility] [address] [place] [address] 08/07/2022 08:19:16 08/08/2022 08:54:13 Cervical radiculopathy 02430949 M54.12 [id number] SRI WALLACE PA-C [facility] [address] [place] [address] 10/25/2022 10:19:56 10/29/2022 10:54:45 Cervical radiculopathy 06754900 M54.12 [id number] TARIK ENCARNACION MD [facility] [address] [place] [address] 12/04/2022 13:11:00 12/05/2022 04:19:40 Cervical radiculopathy 67931810 M54.12 [id number] SRI WALLACE PA-C [facility] [address] [place] [address] 03/04/2023 10:22:06 03/05/2023 04:23:54 Cervical radiculopathy 47550540 M54.12 [id number] GRACE POZO APRN [facility] [address] [place] [address] 08/27/2023 10:38:47 08/28/2023 04:17:28 Cervical radiculopathy 03285372 M54.12 Health Concerns Section Related Observation LastModified by Organization Detai ls LastModified Time None Recorded Concern Status LastModified by Organization Details LastModified Time None Recorded Advance Directives Directive None Recorded Payers Insurance Date Sequence Insurance Name Policy Number Policy James Covered Member ID James Member ID Guarantor Name 08/24/2023 1 [employer] (MEDICARE REPLACEMENT/A DVANTAGE - PPO) Jesus Trent [id number] Jesus Trent Notes Date Note Type Note [...] severe C6/7 foraminal stenosis. TARIK ENCARNACION MD [address] [place] [address], [address], [facility] 08/07/2022 18:58:16 10/25/2022 text/html Mr. Trent is [...] in pain management. SRI WALLACE PA-C [address] [place], [address], [facility] 10/25/2022 15:15:55 12/04/2022 text/html Mr. Trent is [...] C6/7 foraminal stenosis. TARIK ENCARNACION MD [address] [place], [address], [facility] 12/04/2022 21:32:25 03/04/2023 text/html Mr. Trent is [...] symptoms of myelopathy. SRI WALLACE PA-C [address] [place], [address], [facility] 03/04/2023 11:22:34 08/27/2023 text/html Mr. Trent is a 73-year-old man who returns to the office in follow-up of his right upper extremity symptoms. He is currently managed on Lyrica 75 mg twice a day. GRACE POZO, BALANCE WHEEL HAND FILER [address] [place], [address], [facility] 08/27/2023 13:16:46
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
--- OUTSIDE RECORDS SUMMARY | 2025-01-24 11:51 | XMS_ITS | Data Portability ---
Author Organization [place] - Shay martinez MD, Main Office Address [address] [place] [address], [facility] [address] [place] [address] Care Team Providers Care Supervisor Bottle Machines Name Role Phone MARYCHUY DONATO Primary Care Provider [phone] Assessment No assessment recorded. Plan of Treatment [...] By Organization Details Last Modified Time 11/05/2022 [id number] Neck Pain: Care Instructions [email or web address] Not available 11/05/2022 12:52:27 Reason for Referral [...] SNOMED-CT Code Diagnosis ICD10 Code Diagnosis Note [id number] Shay Hernandez MD Main Office [address], [facility] [address] [place] [address] 11/05/2022 12:15:30 11/05/2022 12:53:49 Cervical radiculopathy 56684624 M54.12 Moderate to severe right C6/7 radiculopa [...] (MEDICARE REPLACEMENT/A DVANTAGE - PPO) Jesus Trent [id number] Jesus Trent
--- OUTSIDE RECORDS SUMMARY | 2025-01-24 11:51 | XMS_ITS | Clinical Summary ---
Author Organization Healthcare Address [address] [place] [address] Care Team Providers Care Mechanic'S Assistant Name Role Phone Unavailable Primary Care Provider [...]
--- OUTSIDE RECORDS SUMMARY | 2025-01-24 11:51 | XMS_ITS | Data Portability ---
Author Organization [facility] Address [address] [place] [address] Care Team Providers Care Crime Scene Analyst Name Role Phone MARYCHUY DONATO Primary Care Provider TARIK BOONE Referring Provider Assessment Encounter Date Assessment Date Assessment LastModified by Organization Details LastModified Time 08/29/2022 08/29/2022 HPI: This is a 72-year-old gentleman with right-sided neck and arm pain He was referred by Dr. Boone from [facility] neurosurgery, has right upper extremity radicular pain. Dr. Boone requested a right C6-7 transforaminal JEANCARLOS. He is reportedly a surgical candidate pending results. No prior neck surgery. No prior back surgery. No prior interventional therapy. He works for [employer], neck pain inhibits his ability complete ADLs. [...] Much of this encounter is an electronic exchange specialist/tra nslation of spoken language to printed text. The electronic translation of spoken language may permit erroneous or at times nonsensical words of phrases to be inadvertently transcribed; Although I have reviewed the note for such errors, some may still exist. 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 An initial omeb-rx-cwte counseling and education was done regarding patients [...] clinically necessary intervention (score less than 6). [email or web address] Not available 10/04/2022 09:51:15 10/10/2022 10/10/2022 Jesus Trent is a 72-year-old gentleman with right-sided neck and arm pain. He was referred by Dr. Boone from [facility] neurosurgery, has right upper extremity radicular pain. He works for [employer], neck pain inhibits his ability complete ADLs. [...] services and General Behavioral Health Integration (CPT 18895) was provided for at least 20 minutes [...] our office if symptoms worsen. Through the [employer] platform, the patient was assigned the Reoccurring Assessments activity template, which includes informational videos, journals, and JUAN CARLOS-2 / JUAN CARLOS-7, PHQ-9, PDUQp, Oswestry - Lower Back, ORT-OUD. Patient was not contacted by our clinical support team but provided resources through the [employer] platform. [email or web address] Not available 11/11/2022 09:47:45 Plan of Treatment Reminders Order Date Submit Date Provider Last Modified By Organization Details Last Modified Time Details Appointments None recorded. Lab None recorded. Referral None recorded. Procedures epidural steroid injection, cervical transforami nal (PROC) - STEF TF Right C6-[address] Mariano in [place] with sedation, hold NSAIDs (diclofenac , Ibuprofen) for 5 days beforehand 2022 023 [email or web address] Not available 3 10:21:45 Surgeries None recorded. Imaging None recorded. Medication Orders None recorded. Patient TargetsNo targets recorded. Patient InstructionsNo instructions recorded. Reason for Referral None Reported. Problems Name Problem SNOMED Code Status Onset Date Resolution Date Notes Provider Name and Address Organization Details Recorded Time Cervical radiculopa thy 92855367 Active 2022 Not Available [facility] 3 10:10:34 Cervical spondylosi s without myelopathy 968865592 Active 2022 Cherelle massey [facility] 3 15:32:12 Degenerati on of cervical interverte bral disc 98561511 Active 2022 Cherelle massey [facility] 3 08:47:31 Pain disorder with psychologi cirilo factor 122878867724 Active 2022 Arben massey [facility] 3 09:51:15 Problem Notes None recorded. Procedures Surgical History Date Name Laterality Status Provider Name and Address Organization Details Recorded Time 09/23/19 23 Cervical JEANCARLOS: Transforaminal (1 Level Unilateral) completed CONNIE MARIANO MD [address] [place] [address], [address], [facility] 09/23/2022 16:51:56 Cholecystectomy completed Cherelle KEYES [facility] 08/29/2022 08:16:10 Imaging Results None recorded. Procedure Notes None recorded. Medical Equipment None Reported. Allergies Allergen ID Allergen Name Allergen Category Reaction Reaction Severity Criticality Documentation Date Start Date Code Code System Note Provider Name and Address Organization Details Recorded Time 622445 Keflex medicatio n Not available Not available Not available 10/10/202285627 7 RxNorm AG HUSAIN NP [address] [facility] [place], [address] [place] [address] [facility] 3 11:20:18 Medications Name Sig Start Date [...] Updated DateTime 3 190.5 cm 34.4 kg/m2 485270. 9 g 97 % 97 % 94 /min 114 mm[Hg] 76 mm[Hg] Cherelle stamper [facility] 08:16:27 Date Recorded Oxygen saturation Oxygen saturation in Arterial blood by Pulse oximetry Body mass index (BMI) Body weight Provider Name and Address Organization Details Last Updated DateTime 10/10/2022 97 % 97 % 33.7 kg/m2 400811.9 4 g AG HUSAIN NP [address] [place], [address], [facility] 10/10/2022 11:19:49 Date Recorded Body height Provider Name an d Address Organization Details Last Updated DateTime 10/10/2022 190.5 cm Kaitlynn Cueva [facility] 10/10/2022 11:09:06 Social History Question Answer Notes LastModified by Organizat ion Details LastModified Time Tobacco Smoking Status Former Smoker Kaitlynn massey [facility] 10/10/2022 11:10:29 Do You Have An Advance Directive? No [email or web address] Information not available 10/10/2022 What Type Of Diet Are You Following? REGULAR [email or web address] Information not available 10/10/2022 Which Illicit Or Recreational Drugs Have You Used? None Information not available 10/10/2022 What Is The Highest Grade Or Level Of School You Have Completed Or The Highest Degree You Have Received? DA22926-7 [email or web address] Information not available 10/10/2022 What Was The Date Of Your Most Recent Tobacco Screening? 08/29/2022 [email or web address] Information not available 10/10/2022 What Is Your Relationship Status? [email or web address] Information not available 08/29/2022 How Much Tobacco Do You Smoke? No [email or web address] Information not available 10/10/2022 Have You Used IV Drugs? No [email or web address] Information not available 10/10/2022 Sex: Unknown Functional Status Question Answer Note LastModified by Organizat ion Details LastModified Time What is your level of alcohol consumption? Occasional [email or web address] Information not available 10/10/2022 Are you currently employed? No [email or web address] Information not available 10/10/2022 Are you able to walk? YESWOREST [email or web address] Information not available 10/10/2022 What is your occupation? [email or web address] Information not available 10/10/2022 What is your exercise level? Occasional [email or web address] Information not available 10/10/2022 Mental Status None recorded. Family History Relationship Description Onset Age of this Age Resolved Age Notes LastModified by Organization Details LastModified Time Father Heart disease [email or web address] Not available 2022 08:15:59 Medical History Condition Response Bipolar Disease N Coronary Artery Disease N Gout N Seizure Disorder N Atrial Fibrillation N Thyroid Disease N Head Trauma/Injury N Hernia N Depression N COPD N Anxiety Disorder N Acid Reflux (GERD) N Cancer N Stroke N Skin Disorder N High Cholesterol N Liver Disease N Rheumatoid Arthritis N Headaches N Fibromyalgia N Kidney Disease N Autoimmune Disease N Osteoarthritis N Neurosurgery N DVT N Peptic Ulcer Disease N Anemia N Heart Attack (TN) N Diabetes N Cardiomyopathy N Bleeding Disorder [...] SNOMED-CT Code Diagnosis ICD10 Code Diagnosis Note [id number] MD Sterling RUIZ [address] [place] [address] 08/29/2022 08:11:41 08/29/2022 09:41:38 Cervical radiculopathy 09918508 M54.12 [id number] MD Honorio RUIZington [address] [place] [address] 09/23/2022 12:54:17 09/23/2022 13:59:17 Cervical radiculopathy 48662410 M54.12 [id number] MD Sterling RUIZ [address] [place] [address] 10/04/2022 09:49:59 10/04/2022 11:09:48 Pain disorder with psychological factor 3828060589 07 F45.42 [id number] MD Sterling RUIZ [address] [place] [address] 10/10/2022 10:37:10 10/10/2022 11:51:36 Cervical radiculopathy 22980834 M54.12 Long-term drug therapy 980291468 Z79.899 no UDS 10/10/2022 [id number] CHRISTY LAWRENCE MD [place] [address] [place] [address] 11/11/2022 09:46:30 11/11/2022 09:55:14 Pain disorder with psychological factor 3533744908 07 F45.42 Health Concerns Section Related Observation LastModified by Organization Detai ls LastModified Time None Recorded Concern Status LastModified by Organization Details LastModified Time None Recorded Advance Directives Directive N: Payers Insurance Date Sequence Insurance Name Policy Number Policy James Covered Member ID James Member ID Guarantor Name 11/11/2022 1 [employer] (MEDICARE REPLACEMENT/A DVANTAGE - PPO) Jesus Trent [id number] Jesus Trent Notes Date Note Type Note [...] improvement; Patient went to 1st session to [facility] and then with [facility] with 's office. Patient states that it helped but then pain returned and was worse. 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 Working:no Prior Pain Management:no Functional Scores:Neck Disability Index (NDI) Completed: 18 CONNIE MARIANO MD [address] [place], [address], [facility] 08/29/2022 09:15:14 10/10/2022 text/html Follow-up (meds & [...] improvement; Patient went to 1st session to [facility] and then with [facility] with 's office. Patient states that it helped but then pain returned and was worse. Previous pediatric critical care nurse:none Medications History:NSAIDS: (Diclofenac-Effect nadira); muscle relaxants: (Methocarbamol-Not [...] Right C6-7 0% AG HUSAIN NP [address] [place], [address], [facility] 10/10/2022 12:56:05
--- NOTE | 2025-01-24 11:52 | XR_ITS ---
FINAL REPORT CLINICAL HISTORY: PAIN. NO INJURY OR TRAUMA COMPARISON: None FINDINGS: LEFT HIP: Two views of the left hip demonstrate no acute fracture or dislocation. There is mild hypertrophic change involving the acetabular margin. The visualized bony structures are well aligned. No soft tissue abnormality is seen. IMPRESSION: No acute bony abnormality. Reviewed, Interpreted and Dictated by Trev Lam MD Transcribed by Destinee Gillis Authenticated and . [facility]
== END 2025-01-24 23:59 | disposition home or self-care (01) ==
LOC: RAD 11:48
PROVIDERS: PCP Family Medicine; Visit Provider Family Medicine
DX: M16.12 Unilateral primary osteoarthritis, left hip (principal)
CPT/HCPCS: 73502